=== PATIENT | female | born 1995 | race Caucasian/White ===

== ENCOUNTER 2016-08-14 15:19 | Emergency (ER) | payer OTHER ==
[2016-08-14 15:41] VITALS: TEMP 97.9
[2016-08-14] MEDS ORDERED: SODIUM CHLORIDE 0.9% 2,000 ML IV STA (16:26)
[2016-08-14] MEDS ORDERED: ACETAMINOPHEN IV (For NPO) 1,000 MG in EMPTY BAG 1 BAG IVPB STA (16:26)
--- NOTE | 2016-08-14 16:28 | ED ---
Nausea/Vomiting/Diarrhea HPI - General Chief complaint: Nausea/Vomiting/Diarrhea Stated complaint: NVD/Abdominal pain/16 wks preg Time Seen by Provider: 08/14/16 16:19 Source: patient, RN notes reviewed Mode of arrival: ambulatory Limitations: no limitations - History of Present Illness Initial comments: 21-year-old female who is a presents to the emergency Department chief complaint of nausea vomiting and diarrhea in . Patient states this started about 2 days ago. Patient states her whole body just feels keeping crampy. Patient states that she thrown up multiple times has been no blood in the vomit or diarrhea. Patient states she's been able to drink some water but she does have lots of vomiting such as now, she is actually down. Patient states she's felt hot and cold but never has had a fever that she is aware of. Patient states she was concerned due to the fact that she discontinued any nausea vomiting diarrhea so she thought that she should be evaluated. Patient states that she is not currently having any other symptoms at this time. Patient denies any recent fever, chills, shortness of breath, chest pain, back pain, numbness or tingling, dysuria or hematuria, constipation, headaches or visual changes, or any other current symptoms. - Related Data Home Medications Medication Instructions Recorded Confirmed Pnv with Ca,No.72/Iron/FA 1 tab PO DAILY 08/14/16 08/14/16 [ Plus Tablet] Allergies Allergy/AdvReac Type Severity Reaction Status Date / Time amoxicillin Allergy Rash/Hives Verified 08/14/16 17:25 cephalexin monohydrate Allergy Rash/Hives Verified 08/14/16 17:25 [From Keflex] clarithromycin [From Biaxin] Allergy Rash/Hives Verified 08/14/16 17:25 oxycodone [From Percocet] Allergy Unknown Verified 08/14/16 17:25 Penicillins Allergy Rash/Hives Verified 08/14/16 17:25 morphine AdvReac Nausea & Verified 08/14/16 17:25 Vomiting Review of Systems ROS Statement: Those systems with pertinent positive or pertinent negative responses have been documented in the HPI. ROS Other: All systems not noted in ROS Statement are negative. Past Medical History Past Medical History: Seizure Disorder History of Any Multi-Drug Resistant Organisms: MRSA Date of last positivie culture/infection: 2011 MDRO Source:: mrsa Past Surgical History: No Surgical Hx Reported Past Anesthesia/Blood Transfusion Reactions: No Reported Reaction Past Psychological History: Anxiety, Depression Smoking Status: Never smoker Past Alcohol Use History: None Reported Past Drug Use History: None Reported General Exam - General Exam Comments Initial Comments: General: The patient is awake and alert, in no distress, and does not appear acutely ill. Eye: Pupils are equal, round and reactive to light, extra-ocular movements are intact; there is normal conjunctiva bilaterally. No signs of icterus. Ears, nose, mouth and throat: There are moist mucous membranes. Neck: The neck is supple, there is no tenderness. Cardiovascular: There is a regular rate and rhythm. No murmur, rub or gallop is appreciated. Respiratory: Lungs are clear to auscultation, respirations are non-labored, breath sounds are equal. No wheezes, stridor, rales, or rhonchi. Gastrointestinal: Soft, non-distended, non-tender abdomen without masses or organomegaly noted. There is no rebound or guarding present. No CVA tenderness. Bowel sounds are unremarkable. Back: There is no tenderness to palpation in the midline. There is no obvious deformity. No rashes noted. Musculoskeletal: Normal ROM, no tenderness, There is no pedal edema. There is no calf tenderness or swelling. Sensation intact. Pulses equal bilaterally 2+. Neurological: CN II-XII intact, There are no obvious motor or sensory deficits. Coordination appears grossly intact. Speech is normal. Skin: Skin is warm and dry and no rashes or lesions are noted. Psychiatric: Cooperative, appropriate mood & affect, normal judgment. Limitations: no limitations Course Vital Signs 08/14/16 15:38 Temperature 97.9 F Pulse Rate 111 H Respiratory 20 Rate Blood Pressure 102/66 O2 Sat by Pulse 98 Oximetry Medical Decision Making - Medical Decision Making 21-year-old female who is currently 16 weeks presents emergency nausea vomiting diarrhea. At this time the patient's laboratory is reviewed. Patient was tachycardic patient was dehydrated as well. She did receive 2 L of fluid. Patient this time is feeling better. Patient's heart tones more elevated in the room however the patient states she has had this throughout her . 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 We discussed return parameters on the patient's questions. She states she understood. She is comfortable going home. Patient will be discharged. - Lab Data Result diagrams: 08/14/16 16:35 08/14/16 16:35 Lab Results 08/14/16 08/14/16 08/14/16 Range/Units 16:35 16:35 16:35 WBC 10.7 H (3.8-10.6) k/uL RBC 4.23 (3.80-5.40) m/uL Hgb 12.8 (11.4-16.0) gm/dL Hct 38.2 (34.0-46.0) % MCV 90.3 (80.0-100.0) fL MCH 30.4 (25.0-35.0) pg MCHC 33.6 (31.0-37.0) g/dL RDW 13.1 (11.5-15.5) % Plt Count 273 (150-450) k/uL Neutrophils % 88 % Lymphocytes % 7 % Monocytes % 3 % Eosinophils % 2 % Basophils % 0 % Neutrophils # 9.3 H (1.3-7.7) k/uL Lymphocytes # 0.8 L (1.0-4.8) k/uL Monocytes # 0.3 (0-1.0) k/uL Eosinophils # 0.2 (0-0.7) k/uL Basophils # 0.0 (0-0.2) k/uL Sodium 138 (137-145) mmol/L Potassium 4.1 (3.5-5.1) mmol/L Chloride 106 (98-107) mmol/L Carbon Dioxide 19 L (22-30) mmol/L Anion Gap 13 mmol/L BUN 5 L (7-17) mg/dL Creatinine 0.46 L (0.52-1.04) mg/dL Est GFR (MDRD) Af Amer >60 (>60 ml/min/1.73 sqM) Est GFR (MDRD) Non-Af >60 (>60 ml/min/1.73 sqM) Glucose 67 L (74-99) mg/dL Calcium 9.6 (8.4-10.2) mg/dL Total Bilirubin 0.9 (0.2-1.3) mg/dL AST 22 (14-36) U/L ALT 30 (9-52) U/L Alkaline Phosphatase 82 (38-126) U/L Total Protein 7.1 (6.3-8.2) g/dL Albumin 3.9 (3.5-5.0) g/dL Amylase 68 (30-110) U/L Lipase 61 (23-300) U/L Urine Color Urine Appearance (Clear) Urine pH (5.0-8.0) Ur Specific [place] (1.001-1.035) Urine Protein (Negative) Urine Glucose (UA) (Negative) Urine Ketones (Negative) Urine Blood (Negative) Urine Nitrate (Negative) Urine Bilirubin (Negative) Urine Urobilinogen (<2.0) mg/dL Ur Leukocyte Esterase (Negative) Urine RBC (0-5) /hpf Urine WBC (0-5) /hpf Ur Squamous Epith Cells (0-4) /hpf Urine Mucus (None) /hpf Influenza Type A RNA Not Detected (Not Detectd) Influenza Type B (PCR) Not Detected (Not Detectd) 08/14/16 Range/Units 16:35 WBC (3.8-10.6) k/uL RBC (3.80-5.40) m/uL Hgb (11.4-16.0) gm/dL Hct (34.0-46.0) % MCV (80.0-100.0) fL MCH (25.0-35.0) pg MCHC (31.0-37.0) g/dL RDW (11.5-15.5) % Plt Count (150-450) k/uL Neutrophils % % Lymphocytes % % Monocytes % % Eosinophils % % Basophils % % Neutrophils # (1.3-7.7) k/uL Lymphocytes # (1.0-4.8) k/uL Monocytes # (0-1.0) k/uL Eosinophils # (0-0.7) k/uL Basophils # (0-0.2) k/uL Sodium (137-145) mmol/L Potassium (3.5-5.1) mmol/L Chloride (98-107) mmol/L Carbon Dioxide (22-30) mmol/L Anion Gap mmol/L BUN (7-17) mg/dL Creatinine (0.52-1.04) mg/dL Est GFR (MDRD) Af Amer (>60 ml/min/1.73 sqM) Est GFR (MDRD) Non-Af (>60 ml/min/1.73 sqM) Glucose (74-99) mg/dL Calcium (8.4-10.2) mg/dL Total Bilirubin (0.2-1.3) mg/dL AST (14-36) U/L ALT (9-52) U/L Alkaline Phosphatase (38-126) U/L Total Protein (6.3-8.2) g/dL Albumin (3.5-5.0) g/dL Amylase (30-110) U/L Lipase (23-300) U/L Urine Color Yellow Urine Appearance Clear (Clear) Urine pH 5.5 (5.0-8.0) Ur Specific [place] 1.016 (1.001-1.035) Urine Protein Negative (Negative) Urine Glucose (UA) Negative (Negative) Urine Ketones 4+ H (Negative) Urine Blood Negative (Negative) Urine Nitrate Negative (Negative) Urine Bilirubin Negative (Negative) Urine Urobilinogen <2.0 (<2.0) mg/dL Ur Leukocyte Esterase Moderate H (Negative) Urine RBC 2 (0-5) /hpf Urine WBC 3 (0-5) /hpf Ur Squamous Epith Cells 5 H (0-4) /hpf Urine Mucus Rare H (None) /hpf Influenza Type A RNA (Not Detectd) Influenza Type B (PCR) (Not Detectd) Disposition Clinical Impression: Nausea and vomiting, Diarrhea Disposition: HOME SELF-CARE Condition: Stable Instructions: Acute Nausea and Vomiting (ED) Additional Instructions: Please use medication as discussed. Please follow up with family doctor if symptoms have not improved over the next two days. Please return to the emergency room if your symptoms increase or worsen or for any other concerns. Referrals: Lance Cruz DO [Primary Care Provider] - 1-2 days Time of Disposition: 18:49
[2016-08-14 17:13] LABS: Basophils % (A) 0 %; CH 30.8; CHCM 34.3; Eosinophils # (A) 0.2 k/uL (0-0.7); Eosinophils % (A) 2 %; HCT 38.2 % (34.0-46.0); HDW 2.66; HGB 12.8 gm/dL (11.4-16.0); Luc # (Auto) 0.04; Luc % (Auto) 0; Lymphocytes # (A) 0.8 k/uL (1.0-4.8); Lymphocytes % (A) 7 %; MCH 30.4 pg (25.0-35.0); MCHC 33.6 g/dL (31.0-37.0); MCV 90.3 fL (80.0-100.0); Mean Platelet Volume 7.8; Monocytes # (A) 0.3 k/uL (0-1.0); Monocytes % (A) 3 %; Neutrophils # (A) 9.3 k/uL (1.3-7.7); Neutrophils % (A) 88 %; RBC 4.23 m/uL (3.80-5.40); RDW 13.1 % (11.5-15.5); WBC 10.7 k/uL (3.8-10.6); WBC (Perox) 10.62
[2016-08-14 17:22] LABS: Appearance,Urine Clear (Clear); Bilirubin,Urine Negative (Negative); Glucose,Urine (UA) Negative (Negative); Ketones,Urine 4+ (Negative); Leukocyte Esterase,Urine Moderate (Negative); Mucus,Urine Rare /hpf; Nitrite,Urine Negative (Negative); PH, Urine 5.5 (5.0-8.0); Particle Count 3845; Protein,Urine Negative (Negative); RBC,Urine 2 /hpf (0-5); Specific Gravity,Urine 1.016 (1.001-1.035); Squamous Epithelial Cell,Urine 5 /hpf (0-4); UA Billing (MACRO vs. MICRO) MICRO; Urobilinogen,Urine <2.0 mg/dL (<2.0); WBC,Urine 3 /hpf (0-5)
[2016-08-14 17:28] LABS: ALT 30 U/L (9-52); AST 22 U/L (14-36); Alkaline Phosphatase 82 U/L (38-126); Amylase 68 U/L (30-110); Anion Gap 13 mmol/L; Blood Urea Nitrogen 5 mg/dL (7-17); Calcium 9.6 mg/dL (8.4-10.2); Carbon Dioxide 19 mmol/L (22-30); Chloride 106 mmol/L (98-107); Glucose 67 mg/dL (74-99); Non-African American GFR(MDRD) >60 (>60 ml/min/1.73 sqM); Potassium 4.1 mmol/L (3.5-5.1); Sodium 138 mmol/L (137-145); Total Bilirubin 0.9 mg/dL (0.2-1.3); Total Protein 7.1 g/dL (6.3-8.2)
[2016-08-14 19:00] VITALS: BP 102/68; PULSE 94; RESP 18
== END 2016-08-14 18:59 | disposition home or self-care (01) ==
LOC: EC 15:19
DX: O26.892 Other specified pregnancy related conditions, second trimester (principal); R11.2 Nausea with vomiting, unspecified; R19.7 Diarrhea, unspecified; E86.0 Dehydration; R00.0 Tachycardia, unspecified; Z3A.16 16 weeks gestation of pregnancy; Z88.0 Allergy status to penicillin; Z88.1 Allergy status to other antibiotic agents; Z88.5 Allergy status to narcotic agent
CPT/HCPCS: 99284; 96374; 96361 ×2; 36415; 80053; 82150; 83690; 85025; 81001; 87040; 87086; 87502; J0131

== ENCOUNTER 2016-09-17 14:48 | Emergency (ER) | payer OTHER ==
[2016-09-17 15:06] VITALS: BP 117/70; PULSE 106; RESP 20; TEMP 98.4
--- NOTE | 2016-09-17 15:39 | ED ---
General Adult HPI - General Chief complaint: ENT Stated complaint: Sore Throat Time Seen by Provider: 09/17/16 15:27 Source: patient, RN notes reviewed Mode of arrival: ambulatory Limitations: no limitations - History of Present Illness Initial comments: this is a 21-year-old female who presents with a sore throat and diagnosed conjunctivitis that started yesterday. Patient states she was at her primary care physician who started her on azithromycin and antibiotic eyedrops. Patient states she has been taking 1000 mg of Tylenol and just started her azithromycin today. Patient states her sore throat has prevented her from eating and she did not get a good night's sleep. Patient states she has been feeling hot and cold but has had no documented fever. Patient is currently ~23 weeks . Patient states there is a throat swab pending for strep that was done by her primary care physician. Patient denies any recent shortness breath, chest pain, abdominal pain, nausea/vomiting/diarrhea, vaginal discharge , vaginal bleeding, back pain, numbness, tingling, hematuria, headache, or visual changes, or any other complaints. - Related Data Home Medications Medication Instructions Recorded Confirmed Pnv with Ca,No.72/Iron/FA 1 tab PO DAILY 08/14/16 09/17/16 [ Plus Tablet] Previous Rx's Medication Instructions Recorded Lidocaine Viscous [Xylocaine 1 ml MUCOUS MEM Q3H 7 Days 09/17/16 Viscous 2%] Allergies Allergy/AdvReac Type Severity Reaction Status Date / Time amoxicillin Allergy Rash/Hives Verified 09/17/16 15:06 cephalexin monohydrate Allergy Rash/Hives Verified 09/17/16 15:06 [From Keflex] clarithromycin [From Biaxin] Allergy Rash/Hives Verified 09/17/16 15:06 oxycodone [From Percocet] Allergy Unknown Verified 09/17/16 15:06 Penicillins Allergy Rash/Hives Verified 09/17/16 15:06 morphine AdvReac Nausea & Verified 09/17/16 15:06 Vomiting Review of Systems ROS Statement: Those systems with pertinent positive or pertinent negative responses have been documented in the HPI. ROS Other: All systems not noted in ROS Statement are negative. Past Medical History Past Medical History: Seizure Disorder History of Any Multi-Drug Resistant Organisms: MRSA Date of last positivie culture/infection: 2011 MDRO Source:: mrsa Past Surgical History: No Surgical Hx Reported Past Anesthesia/Blood Transfusion Reactions: No Reported Reaction Past Psychological History: Anxiety, Depression Smoking Status: Never smoker Past Alcohol Use History: None Reported Past Drug Use History: None Reported General Exam - General Exam Comments Initial Comments: General: The patient is awake and alert, in no distress, and does not appear acutely ill. Eye: Pupils are equal, round and reactive to light, extra-ocular movements are intact. No nystagmus. There is normal conjunctiva bilaterally. No signs of icterus. Ears: TMs pink and pearly with intact cone of light bilaterally. Normal external ear canals Nose: Nasal turbinates pink and moist Mouth and throat: Mild erythema of the posterior pharynx with normal sized tonsils, no exudates. There are moist mucous membranes and no oral lesions. Neck: The neck is supple, there is no tenderness or JVD. Cardiovascular: There is a regular rate and rhythm. No murmur, rub or gallop is appreciated. Respiratory: Lungs are clear to auscultation, respirations are non-labored, breath sounds are equal. No wheezes, stridor, rales, or rhonchi. Gastrointestinal: Soft, non-distended, non-tender abdomen without masses or organomegaly noted. There is no rebound or guarding present. Bowel sounds are unremarkable. Musculoskeletal: Normal ROM, no tenderness. Strength 5/5. Sensation intact. Radial pulses equal bilaterally 2+. Neurological: A&O x 3. CN II-XII intact, There are no obvious motor or sensory deficits. Coordination appears grossly intact. Speech is normal. Skin: Skin is warm and dry and no rashes or lesions are noted. Psychiatric: Cooperative, appropriate mood & affect, normal judgment. Limitations: no limitations Course Vital Signs 09/17/16 15:02 Temperature 98.4 F Pulse Rate 106 H Respiratory 20 Rate Blood Pressure 117/70 O2 Sat by Pulse 97 Oximetry Medical Decision Making - Medical Decision Making This is a female presents with sore throat and conjunctivitis she has been on azithromycin for 1 dose. On physical exam patient is afebrile in the EC. There is mild erythema to the posterior pharynx but no tonsillar enlargement or exudates. I discussed with patient that she'll have to continue Tylenol. Discussed that patient should continue her antibiotics as prescribed. Discussed that the patient should finish the entire course of antibiotics. Patient will be given a prescription for viscous lidocaine to swish/gargle and spit out to help with the sore throat pain. Discussed return parameters. Discussed that patient should follow up with PCP in one to 2 days or return to the EC for any worsening symptoms or for any further concerns. Patient was receptive to this plan and patient will be discharged home. Disposition Clinical Impression: Sore throat Disposition: HOME SELF-CARE Condition: Good Instructions: Pharyngitis (ED) Additional Instructions: Please use viscous lidocaine as prescribed. Please finish entire course of your antibiotic. Please use Tylenol as needed for pain. Please use medication as discussed. Please follow-up with family doctor in the next 2 days of symptoms have not improved. Please return to emergency room if the symptoms increase or worsen or for any other concerns. Prescriptions: Lidocaine Viscous [Xylocaine Viscous 2%] 1 ml MUCOUS MEM Q3H 7 Days Time of Disposition: 15:52
== END 2016-09-17 15:56 | disposition home or self-care (01) ==
LOC: EC 14:48
DX: O99.512 Diseases of the respiratory system complicating pregnancy, second trimester (principal); J02.9 Acute pharyngitis, unspecified; Z3A.23 23 weeks gestation of pregnancy; Z86.69 Personal history of other diseases of the nervous system and sense organs; Z79.899 Other long term (current) drug therapy; Z88.0 Allergy status to penicillin; Z88.1 Allergy status to other antibiotic agents; Z88.5 Allergy status to narcotic agent; Z88.6 Allergy status to analgesic agent
CPT/HCPCS: 99283

== ENCOUNTER → 2017-06-21 | Outpatient (CLI) | payer OTHER ==
[2017-06-21 11:13] LABS: Basophils # (A) 0.1 k/uL (0-0.2); Basophils % (A) 1 %; CH 25.5; CHCM 30.6; Eosinophils # (A) 0.2 k/uL (0-0.7); Eosinophils % (A) 2 %; HCT 41.2 % (34.0-46.0); HDW 2.26; HGB 12.8 gm/dL (11.4-16.0); Hypochromasia Slight; Luc # (Auto) 0.11; Luc % (Auto) 1; Lymphocytes # (A) 2.9 k/uL (1.0-4.8); Lymphocytes % (A) 32 %; MCH 25.9 pg (25.0-35.0); MCV 83.7 fL (80.0-100.0); Mean Platelet Volume 7.4; Monocytes # (A) 0.6 k/uL (0-1.0); Monocytes % (A) 7 %; Neutrophils % (A) 57 %; RBC 4.93 m/uL (3.80-5.40); WBC 8.8 k/uL (3.8-10.6); WBC (Perox) 8.34
== END | disposition home or self-care (01) ==
LOC: LABWHC1 10:22
PROVIDERS: ATTEND Family Medicine
DX: M19.90 Unspecified osteoarthritis, unspecified site (principal)
CPT/HCPCS: 36415; 85025

== ENCOUNTER 2017-06-22 07:39 | Day surgery (SDC) | payer OTHER ==
[2017-06-18 13:29] VITALS: BMI 26.6
--- NOTE | 2017-06-21 16:54 | P.HPOB ---
History of Present Illness H&P Date: 06/21/17 Chief Complaint: family planning 22 year old presents for laparoscopic tubal ligation. Review of Systems All systems: negative Constitutional: Denies chills, Denies fever Eyes: denies blurred vision, denies pain Ears, nose, mouth and throat: Denies headache, Denies sore throat Cardiovascular: Denies chest pain, Denies shortness of breath Respiratory: Denies cough Gastrointestinal: Denies abdominal pain, Denies diarrhea, Denies nausea, Denies vomiting Genitourinary: Denies dysuria, Denies hematuria Musculoskeletal: Denies myalgias Integumentary: Denies pruritus, Denies rash Neurological: Denies numbness, Denies weakness Psychiatric: Denies anxiety, Denies depression Endocrine: Denies fatigue, Denies weight change Past Medical History Past Medical History: Asthma, GERD/Reflux, Osteoarthritis (OA), Seizure Disorder Additional Past Medical History / Comment(s): last seizure 06/13/16 does not take medication for seizures, back pain History of Any Multi-Drug Resistant Organisms: MRSA Date of last positivie culture/infection: 2011 MDRO Source:: mrsa Past Surgical History: No Surgical Hx Reported Past Anesthesia/Blood Transfusion Reactions: Motion Sickness Additional Past Anesthesia/Blood Transfusion Reaction / Comment(s): pt states has never had anesthesia Smoking Status: Never smoker - Past Family History Mother Family Medical History: No Reported History Medications and Allergies Home Medications Medication Instructions Recorded Confirmed Type Albuterol Inhaler [Ventolin Hfa 1 - 2 puff INHALATION Q6HR PRN 06/18/17 History Inhaler] HYDROcodone/APAP 10-325MG [[place] 1 tab PO BID 06/18/17 06/18/17 History 10-325] Ibuprofen [Motrin] 800 mg PO DAILY PRN 06/18/17 06/18/17 History LORazepam [Ativan] 2 mg PO DAILY PRN 06/18/17 06/18/17 History Mometasone/Formoterol [Dulera 100 2 puff INHALATION DAILY PRN 06/18/17 06/18/17 History Mcg/5 Mcg Inhaler] Allergies Allergy/AdvReac Type Severity Reaction Status Date / Time amoxicillin Allergy Rash/Hives Verified 06/18/17 13:13 cephalexin monohydrate Allergy Rash/Hives Verified 06/18/17 13:13 [From Keflex] clarithromycin [From Biaxin] Allergy Rash/Hives Verified 06/18/17 13:13 nickel Allergy Unknown Verified 06/18/17 13:32 oxycodone [From Percocet] Allergy Unknown Verified 06/18/17 13:13 Penicillins Allergy Rash/Hives Verified 06/18/17 13:13 morphine AdvReac Nausea & Verified 06/18/17 13:13 Vomiting Exam Osteopathic Statement: *. No significant issues noted on an osteopathic structural exam other than those noted in the History and Physical/Consult. HEart: RRR Lungs: CTAB Abdomen: soft, nontender Extremeties: neg marquez's Assessment and Plan (1) Family planning Status: Acute Code(s): Z30.09 - ENCOUNTER FOR OTH GENERAL CNSL AND ADVICE ON CONTRACEPTION SNOMED Code(s): 66075130 Plan: laparoscopic tubal ligation
[~2017-06-22 07:39] MED LIST: LACTATED RINGERS 1,000 ML IV ONE; MORPHINE SULFATE 10 MG/ML SYRINGE IV PRN; Pre Op ABX Message 1 EACH MISC MISCELLANE ONE
[2017-06-22 07:46] VITALS: TEMP 98
[2017-06-22] MEDS ORDERED: SCOPOLAMINE 1.5MG/72HR PATCH TRANSDERM ONE (07:52)
[2017-06-22] MEDS: ONDANSETRON 4 MG/2 ML VIAL IVP PRN ×2 (07:55→09:46)
[2017-06-22] MEDS ORDERED: LACTATED RINGERS 1,000 ML IV ONE (07:55)
[2017-06-22] MEDS ORDERED: DEXAMETHASONE SOD PHOS (MDV) 100 MG/10 ML VIAL IVP ONE (07:55)
[2017-06-22] MEDS ORDERED: LIDOCAINE 1% INJ 10MG/ML (20 ML MDV) ONE (08:52)
[2017-06-22] MEDS ORDERED: PROPOFOL 10 MG/ML 20 ML VIAL IV ONE (08:52)
[2017-06-22] MEDS ORDERED: fentaNYL (PF) 50 MCG/ML 2 ML AMP ONE (08:52)
[2017-06-22] MEDS ORDERED: MIDAZOLAM 2 MG/2 ML VIAL ONE (08:52)
[2017-06-22] MEDS ORDERED: SUCCINYLCHOLINE CHLORIDE VIAL 200 MG/10 ML VIAL IV ONE (08:52)
[2017-06-22] MEDS ORDERED: KETOROLAC 30 MG/ML 1 ML VIAL ONE (08:52)
[2017-06-22] MEDS ORDERED: BUPIVACAINE (PF) 0.25% 30 ML VIAL SQ ONE ×2 (09:12)
--- NOTE | 2017-06-22 09:34 | P.OP ---
Date of Procedure: 06/22/17 Preoperative Diagnosis: 1. FAmily Planning Postoperative Diagnosis: 1. FAmily Planning Procedure(s) Performed: Laparoscopic tubal ligation Anesthesia: CHANTAL Surgeon: Ese Richardson Estimated Blood Loss (ml): 5 IV fluids (ml): 500 Urine output (ml): 10 Pathology: none sent Condition: stable Disposition: PACU Operative Findings: normal uterus tubes and ovaries Description of Procedure: Patient was taken to the operating room where general anesthesia was obtained without difficulty. She was prepped and draped in normal sterile fashion in the dorsal lithotomy position, legs placed in the Duong stirrups. Bladder drained of all urine. [place] speculum placed in the vagina and the anterior lip the cervix was grasped with single-tooth tenaculum. The uterus is sounded to 9 cm and the kroner manipulator was placed. Attention was then turned to the abdomen and gloves were changed. A 10 mm infraumbilical incision was made the scalpel and 10 mm optical trocar was placed under direct visualization. A 5 mm suprapubic Incision was made and a 5 mm optical trocar was placed under direct visualization. Survey of the pelvis revealed normal uterus tubes and ovaries. The left fallopian tube was grasped with a Kleppinger and fulgurated 2 -3 cm on this side in the ampullar portion. The right fallopian tube was grasped with a Kleppinger and fulgurated 2-3 cm in the ampullar portion. All instruments were then removed from the abdomen and vagina. The 10 mm infraumbilical incision was closed with 0 Vicryl and the fascial layer and then 4-0 Vicryl in a subcuticular fashion. The 5 mm incision was closed with 4-0 Vicryl in a subcuticular fashion. Patient tolerated procedure well, sponge and instrument counts correct 2 and she was taken to recovery room in stable condition.
[2017-06-22 09:48] VITALS: RESP 16
[2017-06-22] MEDS: HYDROmorphone 1 MG/ML 1 ML SYRINGE IVP ONE ×2 (09:51→10:02)
[2017-06-22] MEDS ORDERED: PROMETHAZINE INJ 25 MG/ML 1 ML VIAL IVPB ONE (12:14)
[2017-06-22 12:40] VITALS: BP 93/54; PULSE 62
== END 2017-06-22 14:13 | disposition home or self-care (01) ==
LOC: OR 07:39
PROVIDERS: ATTEND Obstetrics & Gynecology
DX: Z30.2 Encounter for sterilization (principal); J45.909 Unspecified asthma, uncomplicated; K21.9 Gastro-esophageal reflux disease without esophagitis; M19.90 Unspecified osteoarthritis, unspecified site; M54.9 Dorsalgia, unspecified; G40.909 Epilepsy, unspecified, not intractable, without status epilepticus; F41.9 Anxiety disorder, unspecified; Z86.14 Personal history of Methicillin resistant Staphylococcus aureus infection; Z79.891 Long term (current) use of opiate analgesic; Z88.1 Allergy status to other antibiotic agents; Z88.5 Allergy status to narcotic agent; Z88.0 Allergy status to penicillin; Z91.048 Other nonmedicinal substance allergy status
CPT/HCPCS: 81025; 58670; J2250; J0330; J2550; J2405; J2001; J3010; J1885; J1170; J1100; J2704

== ENCOUNTER 2018-03-06 14:35 | Emergency (ER) | payer OTHER ==
[2018-03-06 14:57] VITALS: RESP 18
[2018-03-06] MEDS ORDERED: SODIUM CHLORIDE 0.9% 1,000 ML IV STA (15:21)
[2018-03-06] MEDS ORDERED: DICYCLOMINE 10 MG/ML 2 ML AMP IM STA (15:21)
--- NOTE | 2018-03-06 15:26 | ED ---
General Adult HPI - General Source: patient Mode of arrival: ambulatory Limitations: no limitations <Lory Cuevas - Last Filed: 03/06/18 16:08> <Pankaj Lucas - Last Filed: 03/06/18 19:14> - General Chief complaint: Back Pain/Injury Stated complaint: NVD/chest pain Time Seen by Provider: 03/06/18 15:15 - History of Present Illness Initial comments: 22-year-old female patient presents to emergency department today for complaints of chest pain, shortness of breath, vomiting, and diarrhea. Patient states that she woke this morning with symptoms of chest pain and shortness of breath. Patient states that shortly after she developed vomiting and diarrhea. States that her boyfriend is also sick with diarrhea and vomiting. States that she has felt feverish and chilled. States that she has had generalized abdominal cramping with this. States that she is also has an increase in her usual low back pain. Patient states she has had a tubal ligation. She denies any use of oral contraceptives, history of blood clots, recent travel, or sick contacts. Denies any ingestion of questionable foods. She denies any hematuria , dysuria, urinary urgency, urinary frequency. Patient denies any recent rash, numbness, tingling, dizziness, weakness, headache, visual changes, or any other complaints. (Lory Cuevas) - Related Data Home Medications Medication Instructions Recorded Confirmed Albuterol Inhaler [Ventolin Hfa 1 - 2 puff INHALATION RT-QID PRN 06/18/17 Inhaler] HYDROcodone/APAP 10-325MG [[place] 1 tab PO BID PRN 06/18/17 07/28/17 10-325] Mometasone/Formoterol [Dulera 100 2 puff INHALATION RT-BID PRN 06/18/17 07/28/17 Mcg/5 Mcg Inhaler] Timolol 0.5% Ophth Soln [Timoptic 1 drop LEFT EYE DAILY PRN 07/28/17 07/28/17 0.5% Ophth Soln] Previous Rx's Medication Instructions Recorded Ibuprofen [Motrin] 600 mg PO Q6HR PRN #20 tab 03/06/18 Ondansetron Odt [Zofran Odt] 4 mg PO Q8HR PRN #10 tab 03/06/18 Allergies Allergy/AdvReac Type Severity Reaction Status Date / Time amoxicillin Allergy Rash/Hives Verified 03/06/18 14:55 cephalexin monohydrate Allergy Rash/Hives Verified 03/06/18 14:55 [From Keflex] clarithromycin [From Biaxin] Allergy Rash/Hives Verified 03/06/18 14:55 nickel Allergy Unknown Verified 03/06/18 14:55 oxycodone [From Percocet] Allergy Unknown Verified 03/06/18 14:55 Penicillins Allergy Rash/Hives Verified 03/06/18 14:55 morphine AdvReac Nausea & Verified 03/06/18 14:55 Vomiting Review of Systems ROS Other: All systems not noted in ROS Statement are negative. <Lory Cuevas - Last Filed: 03/06/18 16:08> ROS Other: All systems not noted in ROS Statement are negative. <Pankaj Lucas - Last Filed: 03/06/18 19:14> ROS Statement: Those systems with pertinent positive or pertinent negative responses have been documented in the HPI. Past Medical History Past Medical History: Asthma, GERD/Reflux, Osteoarthritis (OA), Seizure Disorder Additional Past Medical History / Comment(s): last seizure 06/13/16 does not take medication for seizures, back pain History of Any Multi-Drug Resistant Organisms: MRSA Date of last positivie culture/infection: 2011 MDRO Source:: mrsa Past Surgical History: Tubal Ligation Past Anesthesia/Blood Transfusion Reactions: Motion Sickness Additional Past Anesthesia/Blood Transfusion Reaction / Comment(s): pt states has never had anesthesia Past Psychological History: Anxiety, Depression, PTSD Smoking Status: Current every day smoker Past Alcohol Use History: None Reported Past Drug Use History: Marijuana - Past Family History Mother Family Medical History: No Reported History <Lory Cuevas - Last Filed: 03/06/18 16:08> General Exam Limitations: no limitations General appearance: alert, in no apparent distress, other (This is a well- developed, well-nourished adult female patient in no acute distress. Vital signs upon presentation are temperature 98.9F, pulse 111, respirations 18, blood pressure 106/72, pulse ox 100% on room air.) Eye exam: Present: normal appearance, PERRL, EOMI. Absent: scleral icterus, conjunctival injection, periorbital swelling ENT exam: Present: normal exam, normal oropharynx Respiratory exam: Present: normal lung sounds bilaterally. Absent: respiratory distress, wheezes, rales, rhonchi, stridor Cardiovascular Exam: Present: regular rate, normal rhythm, normal heart sounds. Absent: systolic murmur, diastolic murmur, rubs, gallop, clicks GI/Abdominal exam: Present: soft, tenderness (Upper abdominal tenderness), normal bowel sounds. Absent: distended, guarding, rebound, rigid Neurological exam: Present: alert, oriented X3, CN II-XII intact Psychiatric exam: Present: normal affect, normal mood Skin exam: Present: warm, dry, intact, normal color. Absent: rash <Lory Cuevas - Last Filed: 03/06/18 16:08> Course <Lory Cuevas - Last Filed: 03/06/18 16:08> <Pankaj Lucas - Last Filed: 03/06/18 19:14> Vital Signs 03/06/18 03/06/18 03/06/18 14:55 16:37 18:04 Temperature 98.9 F 98.0 F Pulse Rate 111 H 92 107 H Respiratory 18 18 18 Rate Blood Pressure 106/72 99/55 110/67 O2 Sat by Pulse 100 98 98 Oximetry - Reevaluation(s) Reevaluation #1: 03/06/18 16:08 Care has been handed over to Dr. Lucas to follow patient until disposition. ( Lory Cuevas) EKG Findings - EKG Comments: EKG Findings:: EKG obtained at 1534 shows normal sinus rhythm with a sinus arrhythmia. Ventricular rate is 93, TX interval 174, QR alevism 78, QT 314 , QTC 390. No evidence of ST elevation or depression. <Lory Cuevas - Last Filed: 03/06/18 16:08> Medical Decision Making <Lory Cuevas - Last Filed: 03/06/18 16:08> - Lab Data Result diagrams: 03/06/18 15:45 03/06/18 15:45 - Radiology Data Radiology results: report reviewed (I did review the imaging and report no acute findings), image reviewed <Pankaj Lucas - Last Filed: 03/06/18 19:14> - Medical Decision Making The patient is feeling much improved this time she'll be discharged the presentation consistent with costochondritis and gastroenteritis she does have reproducible pain over the chest wall. She is showing improved at this time ( Pankaj Lucas) - Lab Data Lab Results 03/06/18 03/06/18 03/06/18 Range/Units 15:45 15:45 15:45 WBC 9.4 (3.8-10.6) k/uL RBC 5.35 (3.80-5.40) m/uL Hgb 13.5 (11.4-16.0) gm/dL Hct 42.7 (34.0-46.0) % MCV 79.8 L (80.0-100.0) fL MCH 25.2 (25.0-35.0) pg MCHC 31.6 (31.0-37.0) g/dL RDW 15.3 (11.5-15.5) % Plt Count 367 (150-450) k/uL Neutrophils % 88 % Lymphocytes % 6 % Monocytes % 3 % Eosinophils % 2 % Basophils % 0 % Neutrophils # 8.3 H (1.3-7.7) k/uL Lymphocytes # 0.6 L (1.0-4.8) k/uL Monocytes # 0.3 (0-1.0) k/uL Eosinophils # 0.2 (0-0.7) k/uL Basophils # 0.0 (0-0.2) k/uL D-Dimer 0.65 H (<0.60) mg/L FEU Sodium 141 (137-145) mmol/L Potassium 4.2 (3.5-5.1) mmol/L Chloride 108 H (98-107) mmol/L Carbon Dioxide 22 (22-30) mmol/L Anion Gap 11 mmol/L BUN 13 (7-17) mg/dL Creatinine 0.60 (0.52-1.04) mg/dL Est GFR (CKD-EPI)AfAm >90 (>60 ml/min/1.73 sqM) Est GFR (CKD-EPI)NonAf >90 (>60 ml/min/1.73 sqM) Glucose 87 (74-99) mg/dL Calcium 9.9 (8.4-10.2) mg/dL Total Bilirubin 0.7 (0.2-1.3) mg/dL AST 19 (14-36) U/L ALT 29 (9-52) U/L Alkaline Phosphatase 85 (38-126) U/L Total Creatine Kinase (30-135) U/L CK-MB (CK-2) (0.0-2.4) ng/mL CK-MB (CK-2) Rel Index Troponin I (0.000-0.034) ng/mL Total Protein 7.4 (6.3-8.2) g/dL Albumin 4.6 (3.5-5.0) g/dL Amylase 62 (30-110) U/L Lipase 114 (23-300) U/L Urine Color Urine Appearance (Clear) Urine pH (5.0-8.0) Ur Specific [place] (1.001-1.035) Urine Protein (Negative) Urine Glucose (UA) (Negative) Urine Ketones (Negative) Urine Blood (Negative) Urine Nitrite (Negative) Urine Bilirubin (Negative) Urine Urobilinogen (<2.0) mg/dL Ur Leukocyte Esterase (Negative) Urine HCG, Qual (Not Detectd) 03/06/18 03/06/18 03/06/18 Range/Units 15:45 15:50 15:50 WBC (3.8-10.6) k/uL RBC (3.80-5.40) m/uL Hgb (11.4-16.0) gm/dL Hct (34.0-46.0) % MCV (80.0-100.0) fL MCH (25.0-35.0) pg MCHC (31.0-37.0) g/dL RDW (11.5-15.5) % Plt Count (150-450) k/uL Neutrophils % % Lymphocytes % % Monocytes % % Eosinophils % % Basophils % % Neutrophils # (1.3-7.7) k/uL Lymphocytes # (1.0-4.8) k/uL Monocytes # (0-1.0) k/uL Eosinophils # (0-0.7) k/uL Basophils # (0-0.2) k/uL D-Dimer (<0.60) mg/L FEU Sodium (137-145) mmol/L Potassium (3.5-5.1) mmol/L Chloride (98-107) mmol/L Carbon Dioxide (22-30) mmol/L Anion Gap mmol/L BUN (7-17) mg/dL Creatinine (0.52-1.04) mg/dL Est GFR (CKD-EPI)AfAm (>60 ml/min/1.73 sqM) Est GFR (CKD-EPI)NonAf (>60 ml/min/1.73 sqM) Glucose (74-99) mg/dL Calcium (8.4-10.2) mg/dL Total Bilirubin (0.2-1.3) mg/dL AST (14-36) U/L ALT (9-52) U/L Alkaline Phosphatase (38-126) U/L Total Creatine Kinase 79 (30-135) U/L CK-MB (CK-2) 0.4 (0.0-2.4) ng/mL CK-MB (CK-2) Rel Index 0.5 Troponin I <0.012 (0.000-0.034) ng/mL Total Protein (6.3-8.2) g/dL Albumin (3.5-5.0) g/dL Amylase (30-110) U/L Lipase (23-300) U/L Urine Color Yellow Urine Appearance Clear (Clear) Urine pH 8.5 H (5.0-8.0) Ur Specific [place] 1.020 (1.001-1.035) Urine Protein Trace H (Negative) Urine Glucose (UA) Negative (Negative) Urine Ketones Trace H (Negative) Urine Blood Negative (Negative) Urine Nitrite Negative (Negative) Urine Bilirubin Negative (Negative) Urine Urobilinogen <2.0 (<2.0) mg/dL Ur Leukocyte Esterase Negative (Negative) Urine HCG, Qual Not Detected (Not Detectd) Disposition <Lory Cuevas - Last Filed: 03/06/18 16:08> Is patient prescribed a controlled substance at d/c from ED?: No <Pankaj Lucas - Last Filed: 03/06/18 19:14> Clinical Impression: Gastroenteritis, Costochondritis, acute Disposition: HOME SELF-CARE Condition: Good Instructions: Acute Nausea and Vomiting (ED), Dehydration (ED), Costochondritis (ED) Prescriptions: Ibuprofen [Motrin] 600 mg PO Q6HR PRN #20 tab PRN Reason: Pain Ondansetron Odt [Zofran Odt] 4 mg PO Q8HR PRN #10 tab PRN Reason: Nausea Referrals: Lance Cruz DO [Primary Care Provider] - 1-2 days
[2018-03-06] MEDS: ONDANSETRON 4 MG/2 ML VIAL IVP STA ×2 (15:54→18:33)
[2018-03-06] MEDS: KETOROLAC 30 MG/ML 1 ML VIAL IVP STA ×2 (15:54→18:11)
[2018-03-06 16:02] LABS: Appearance,Urine Clear (Clear); Bilirubin,Urine Negative (Negative); Blood,Urine Negative (Negative); Color,Urine Yellow; Glucose,Urine (UA) Negative (Negative); Ketones,Urine Trace (Negative); Leukocyte Esterase,Urine Negative (Negative); Nitrite,Urine Negative (Negative); PH, Urine 8.5 (5.0-8.0); Protein,Urine Trace (Negative); Urobilinogen,Urine <2.0 mg/dL (<2.0)
[2018-03-06 16:02] LABS: Basophils % (A) 0 %; Eosinophils # (A) 0.2 k/uL (0-0.7); Eosinophils % (A) 2 %; HCT 42.7 % (34.0-46.0); HGB 13.5 gm/dL (11.4-16.0); Lymphocytes # (A) 0.6 k/uL (1.0-4.8); Lymphocytes % (A) 6 %; MCH 25.2 pg (25.0-35.0); MCHC 31.6 g/dL (31.0-37.0); MCV 79.8 fL (80.0-100.0); Mean Platelet Volume 6.8; Monocytes # (A) 0.3 k/uL (0-1.0); Monocytes % (A) 3 %; Neutrophils # (A) 8.3 k/uL (1.3-7.7); Neutrophils % (A) 88 %; Platelet Count 367 k/uL (150-450); RBC 5.35 m/uL (3.80-5.40); RDW 15.3 % (11.5-15.5); WBC 9.4 k/uL (3.8-10.6)
[2018-03-06 16:12] LABS: ALT 29 U/L (9-52); AST 19 U/L (14-36); Albumin 4.6 g/dL (3.5-5.0); Alkaline Phosphatase 85 U/L (38-126); Amylase 62 U/L (30-110); Anion Gap 11 mmol/L; Blood Urea Nitrogen 13 mg/dL (7-17); Calcium 9.9 mg/dL (8.4-10.2); Carbon Dioxide 22 mmol/L (22-30); Chloride 108 mmol/L (98-107); Glucose 87 mg/dL (74-99); Lipase 114 U/L (23-300); Potassium 4.2 mmol/L (3.5-5.1); Sodium 141 mmol/L (137-145); Total Bilirubin 0.7 mg/dL (0.2-1.3); Total Protein 7.4 g/dL (6.3-8.2)
[2018-03-06 16:20] LABS: Creatine Kinase 79 U/L (30-135)
--- NOTE | 2018-03-06 16:26 | XR ---
EXAMINATION TYPE: XR chest 2V DATE OF EXAM: 03/06/2018 COMPARISON: Chest radiograph 09/02/2012 and 09/06/2012 HISTORY: Abdominal pain and emesis TECHNIQUE: Frontal and lateral views of the chest are obtained. FINDINGS: There is no focal air space opacity, pleural effusion, or pneumothorax seen. The cardiac silhouette size is within normal limits. The osseous structures are intact. IMPRESSION: No acute cardiopulmonary process.
--- NOTE | 2018-03-06 16:28 | XR ---
EXAMINATION TYPE: XR KUB DATE OF EXAM: 03/06/2018 4:19 PM CLINICAL HISTORY: Abdominal pain and emesis TECHNIQUE: Single supine KUB image of the abdomen is obtained. COMPARISON: Abdominal radiograph 09/04/12. FINDINGS: No evidence of pneumoperitoneum. No dilated loops of large or small bowel. No abnormal intra-abdomina l pelvic calcifications. No visceromegaly. Osseous structures are intact. IMPRESSION: No acute abdominal or pelvic process.
[2018-03-06 16:33] LABS: Creatine Kinase MB 0.4 ng/mL (0.0-2.4); Troponin I <0.012 ng/mL (0.000-0.034)
--- NOTE | 2018-03-06 18:31 | CT ---
EXAMINATION TYPE: CT angio chest DATE OF EXAM: 03/06/2018 COMPARISON: NONE HISTORY: Chest and back pain. CT DLP: 220.9 mGycm. Automated Exposure Control for Dose Reduction was Utilized. CONTRAST: CTA scan of the thorax is performed with IV Contrast, patient injected with 72 mL of Isovue 370, pulm onary embolism protocol. MIP Images are created on CT scanner and reviewed. FINDINGS: LUNGS: The lungs are grossly clear, there is no concerning parenchymal mass or nodule identified. T here is no pleural effusion or pneumothorax seen. The tracheobronchial tree is patent. MEDIASTINUM: The ascending and descending thoracic aorta are without evidence of aneurysmal dilatatio n. No evidence of aortic dissection. There are no greater than 1 cm hilar or mediastinal lymph nodes. No cardiomegaly or pericardial effusion is seen. Visualized portions of the celiac trunk and superior mesenteric artery are within normal limits. Uppe r abdominal vasculature OTHER: Limited evaluation of the upper abdomen is unremarkable. Osseous structures are intact. Dextro scoliosis is favored to be positional. IMPRESSION: No acute thoracic process.
[2018-03-06 19:24] VITALS: BP 113/64; PULSE 98; TEMP 98.9
== END 2018-03-06 19:24 | disposition home or self-care (01) ==
LOC: EC 14:35
DX: M94.0 Chondrocostal junction syndrome [Tietze] (principal); K52.9 Noninfective gastroenteritis and colitis, unspecified; J45.909 Unspecified asthma, uncomplicated; M19.90 Unspecified osteoarthritis, unspecified site; F17.200 Nicotine dependence, unspecified, uncomplicated; Z86.14 Personal history of Methicillin resistant Staphylococcus aureus infection; Z98.51 Tubal ligation status; Z88.0 Allergy status to penicillin; Z88.1 Allergy status to other antibiotic agents; Z88.5 Allergy status to narcotic agent; Z91.048 Other nonmedicinal substance allergy status
CPT/HCPCS: 36415; 93005; 85379; 80053; 82150; 82550; 82553; 83690; 84484; 85025; 81003; 81025; 71046; 74018; 71275; 99285; 96374; 96375; 96361; 96372; J0500; J2405; J1885; Q9967

== ENCOUNTER → 2018-03-16 | Outpatient (CLI) | payer OTHER ==
--- NOTE | 2018-03-17 10:14 | USB ---
Reason for exam: clinical finding. History: Family history of breast cancer in aunt. Physical Findings: Nurse Summary: clear/white discharge, pain, itching (nurse kp). US Breast BILAT Right complete breast ultrasound includes all four quadrants, the retroareolar region and axilla. Finding demonstrates a 0.6 x 0.6 x 0.4cm oval, solid, hypoechoic lesion at 8 o'clock retroareolar within duct for which a biopsy is recommended. At the 5 o'clock physician palpated site, no cystic or solid lesion is seen. Left complete breast ultrasound includes all four quadrants, the retroareolar region and axilla. Finding demonstrates no cystic or solid lesion seen. These results were verbally communicated with the patient and result sheet given to the patient on 03/16/18. ASSESSMENT: Suspicious, BI-RAD 4 RECOMMENDATION: Ultrasound core biopsy of the right breast. Called Dr. Cruz with mammographic findings and has scheduled an appointment for the patient for 03/18/18 at 12:[address] Rutledge. Biopsy scheduled for 03/23/18 at 2:20. PRELIMINARY REPORT CALLED AND FAXED TO DR. RUTLEDGE ON 03/17/18.
== END | disposition home or self-care (01) ==
LOC: RADUSWWP 15:04
PROVIDERS: ATTEND Family Medicine
DX: N63.10 Unspecified lump in the right breast, unspecified quadrant (principal)

== ENCOUNTER → 2018-03-18 | Outpatient (CLI) | payer OTHER ==
[2018-03-18 12:43] VITALS: BP 110/74; PULSE 66; RESP 18; TEMP 98.5; BMI 25.4
--- NOTE | 2018-03-18 13:08 | P.GSHP ---
History of Present Illness H&P Date: 03/18/18 The patient is a 23-year-old white female who is approximately one year . She recently noted nodule in the right breast. She states that both breasts are tender. The tenderness is cyclical. It occurs several times per month. Occurs when on her period. She has bilateral nipple discharge which is white in color. She did not breast-feed. The discharge occurs several times a week. She has inverted nipples. The patient had an ultrasound performed on 03-16-18 which revealed a 0.6 cm solid hypoechoic lesion at 8:00 in the retroareolar area for which a biopsy was recommended. The 5:00 site no cystic or solid lesion was noted. The patient has no infection in her breast. She has no history of any trauma in her breast. Patient has decreased her caffeine exposure over the past several weeks, however she did used to drink a [address] Pepper each day. She does not drink coffee or tea. She does not smoke. Her boyfriend is a smoker and they live together. She does like chocolate but eats very little of it. Family history: 1. great aunt paternal: Bilateral mastectomy in her 50s Past surgical history: 1. Tubal ligation Past medical history: 1. Posterior make stress disorder 2. Glaucoma 3. Anxiety 4. Seizures Hormonal history: Menarche: 9 Pregnancies: 2 with 2 live births, the firstborn at 18, breast fed: Negative control pills- since 14 to control periods homones: none Social history: Smoking: Negative Alcohol: Negative Marijuana: Every day TID - Constitutional Constitutional: Reports chills, Denies fever - EENT Eyes: left as per HPI (glaucoma in her left eye) Ears: deny: decreased hearing, tinnitus Ears, nose, mouth and throat: Reports headache, Denies sore throat - Breasts Breasts: bilateral: as per HPI - Cardiovascular Cardiovascular: Denies chest pain, Denies shortness of breath - Respiratory Comment: asthma Respiratory: Denies cough, Denies 7 - Gastrointestinal Gastrointestinal: Denies abdominal pain, Denies diarrhea, Denies nausea, Denies vomiting - Genitourinary (Female) Comment: UTI - Menstruation Comment: regular periods, last three days Menstruation: Reports period heavy - Musculoskeletal Comment: Arthritis lower back Musculoskeletal: Reports myalgias - Integumentary Comment: Contact dermatitis - Neurological Comment: history of siezures - Psychiatric Psychiatric: Reports anxiety, Reports depression - Endocrine Endocrine: Reports weight change, Denies fatigue - Hematologic/Lymphatic Comment: Ibuprofen 800 - Allergic/Immunologic Allergic/Immunologic: Reports seasonal allergies Past Medical History Past Medical History: Asthma, GERD/Reflux, Osteoarthritis (OA), Seizure Disorder Additional Past Medical History / Comment(s): last seizure 06/13/16 does not take medication for seizures, back pain History of Any Multi-Drug Resistant Organisms: MRSA Date of last positivie culture/infection: 2011 MDRO Source:: mrsa Past Surgical History: Tubal Ligation Past Anesthesia/Blood Transfusion Reactions: Motion Sickness Additional Past Anesthesia/Blood Transfusion Reaction / Comment(s): pt states has never had anesthesia Past Psychological History: Anxiety, Depression, PTSD Smoking Status: Never smoker Past Alcohol Use History: None Reported Past Drug Use History: Marijuana - Past Family History Mother Family Medical History: No Reported History Medications and Allergies Home Medications Medication Instructions Recorded Confirmed Type Albuterol Inhaler [Ventolin Hfa 1 - 2 puff INHALATION RT-QID PRN 06/18/17 History Inhaler] Mometasone/Formoterol [Dulera 100 2 puff INHALATION RT-BID PRN 06/18/17 History Mcg/5 Mcg Inhaler] Timolol 0.5% Ophth Soln [Timoptic 1 drop LEFT EYE DAILY PRN 07/28/17 03/17/18 History 0.5% Ophth Soln] Ibuprofen [Motrin] 600 mg PO Q6HR PRN #20 tab 03/06/18 03/17/18 Rx Allergies Allergy/AdvReac Type Severity Reaction Status Date / Time amoxicillin Allergy Rash/Hives Verified 03/17/18 16:16 cephalexin monohydrate Allergy Rash/Hives Verified 03/17/18 16:16 [From Keflex] clarithromycin [From Biaxin] Allergy Rash/Hives Verified 03/17/18 16:16 nickel Allergy Unknown Verified 03/17/18 16:16 oxycodone [From Percocet] Allergy Unknown Verified 03/17/18 16:16 Penicillins Allergy Rash/Hives Verified 03/17/18 16:16 morphine AdvReac Nausea & Verified 03/17/18 16:16 Vomiting Surgical - Exam Vital Signs Temp Pulse Resp BP 98.5 F 66 18 110/74 03/18/18 12:29 03/18/18 12:29 03/18/18 12:29 03/18/18 12:29 - General well developed, well nourished, no distress - Eyes normal ocular movement, no icteric - ENT no hearing loss, no congestion - Neck no masses, trachea midline - Respiratory normal respiratory effort, clear to auscultation - Cardiovascular Rhythm: regular Heart Sounds: normal: S1, S2 - Abdomen Abdomen: soft, non tender, no guarding, no rigid, no rebound - Integumentary no rash, no abnormal pigmentation - Neurologic no disoriented, no combative - Musculoskeletal normal gait, normal posture - Psychiatric oriented to time, oriented to person, oriented to place, speech is normal, memory intact Breast examination: Right breast: Multi-positional exam fibrocystic changes with an area of increased nodularity the 8 o'clock position of the retroareolar region this appears to correspond with a was seen on ultrasound Right axilla: No adenopathy of concern Left breast: Multiple positional exam no dominant masses or nodules of concern Left axilla: No adenopathy of concern Results Impression/plan: 1. Right breast nodularity which does corresponding to that seen on the ultrasound 2. Bilateral nipple milky discharge 3. Bilateral breast discomfort probably fibrocystic in nature 4. Post traumatic stress syndrome 5. Chronic back pain 6. Arthritis 7. History of seizures in the past Plan: 1. Ultrasound-guided core biopsy of the area which is palpable and seen on ultrasound on the right breast 2. Prolactin level to evaluate persistent milky discharge 3. Continued medical management of medical problems 4. Follow-up 1 week after biopsy Cc: Dr. Cruz, Dr. Hurtado
== END | disposition home or self-care (01) ==
LOC: WWCWWP 11:58
PROVIDERS: ATTEND Surgery
DX: Z53.9 Procedure and treatment not carried out, unspecified reason (principal)

== ENCOUNTER → 2018-03-18 | Outpatient (CLI) | payer OTHER ==
[2018-03-18 19:19] LABS: Cyclic Citrullinated Pep IgG NEGATIVE (NEGATIVE); DNA Double-Stranded NEGATIVE (NEGATIVE); RNP <0.2 AI; Scleroderma SC-70 Ab <0.2 AI
== END | disposition home or self-care (01) ==
LOC: LABWHC1 13:19
PROVIDERS: ATTEND Surgery
DX: N64.52 Nipple discharge (principal); M25.50 Pain in unspecified joint
CPT/HCPCS: 36415; 83516; 84146; 86038; 86200; 86225; 86235

== ENCOUNTER → 2018-03-23 | Day surgery (SDC) | payer OTHER ==
[2018-03-23 14:07] VITALS: RESP 16; BMI 25.4
[2018-03-23 15:02] VITALS: BP 107/68; PULSE 83; TEMP 98.5
--- NOTE | 2018-03-23 15:29 | USB ---
EXAMINATION TYPE: US biopsy breast VAD RT, MG diagnostic mammo RT wo CAD DATE OF EXAM: 03/23/2018 CLINICAL HISTORY: R92.8 ABN ultrasound. Palpable abnormality right breast. TECHNIQUE: Ultrasound guided core biopsy of right breast with clip placement and follow-up single view diagnostic right breast mammogram. COMPARISON: Bilateral breast ultrasonography 2018. FINDINGS: The procedure of ultrasound guided core biopsy was explained to the patient. Benefits, alternatives, and risks were discussed. An informed consent was then obtained. The patient was placed in supine positioning for imaging and for the procedure. Preprocedure imaging redemonstrates oval slightly hypoechoic 6 mm lesion 8:00 position zone A right breast. The overlying skin was prepped and draped in usual sterile fashion. Lidocaine buffered with bicarbonate was used as anesthetic into the skin. Lidocaine with epinephrine is used as anesthetic into the deeper tissue up to area of concern in the right breast. Under ultrasound guidance, a 12-gauge vacuum assisted biopsy gun device was used to obtain 3 core samples. Following this, a biopsy clip was left in lesion. The patient tolerated the procedure well without any immediate complication. The patient was kept in the radiology department for short stay after the procedure and then discharged home in stable condition. Postprocedure mammogram confirms successful deployment of clip. IMPRESSION: Successful, uncomplicated ultrasound guided core biopsy of area of concern in the right breast, full pathology results to follow. Low to intermediate index of suspicion noted at time of procedure. Pathology Results: Benign RIGHT BREAST, SITE NOT OTHERWISE SPECIFIED (CORE BIOPSIES): Non-proliferative fibrocystic changes with portion of fibroadenoma. Recommendation Follow up ultrasound of the right breast in 6 months. DARRYL
== END | disposition home or self-care (01) ==
LOC: RADUSWWP 13:23
PROVIDERS: ATTEND Surgery
DX: D24.1 Benign neoplasm of right breast (principal); R92.8 Other abnormal and inconclusive findings on diagnostic imaging of breast
CPT/HCPCS: 88305; 77065; 19083; A4648; J2001

== ENCOUNTER → 2018-04-07 | Outpatient (CLI) | payer OTHER ==
[2018-04-07 10:25] VITALS: BP 107/69; PULSE 67; BMI 25.4
--- NOTE | 2018-04-07 10:39 | P.PN ---
Progress Note - Text Progress Note Date: 04/07/18 The patient is a 23-year-old white female who comes for results status post core biopsy of area of concern in the right breast. Pathology revealed a fibroadenoma. This was consistent with a palpable change in her right breast. The patient states that after the biopsy the area has increased in size. The patient also states that the milky discharge from her breast has stopped. Her prolactin level was 7 which was within normal limits. Physical exam: Lungs: Clear Heart: Regular rate and rhythm Right breast: Approximately 1-1/2 cm area of palpable nodularity in the right breast at approximately the 9:00 area towards the area over minimal ecchymosis noted Impression/plan: 1. Fibroadenoma right breast this may be changing in size as per the patient with the changes may be related to post biopsy hematoma 2. The milky discharge has stopped prolactin levels normal Plan: 1. Surveillance of the area of concern in the right breast patient will follow up in 1 month if this is not decreased in size she wishes this area to be excised. She understands that on the core biopsy this is a fibroadenoma but she believes it is changing it is palpable and is bothersome to her and painful. Cc: Dr. Lance Cruz
== END | disposition home or self-care (01) ==
LOC: WWCWWP 09:44
PROVIDERS: ATTEND Surgery
DX: Z53.9 Procedure and treatment not carried out, unspecified reason (principal)

== ENCOUNTER 2018-06-13 00:02 | Emergency (ER) | payer OTHER ==
[2018-06-13 00:39] LABS: Appearance,Urine Cloudy (Clear); Bacteria,Urine Rare /hpf; Bilirubin,Urine Negative (Negative); Blood,Urine Negative (Negative); Color,Urine Yellow; Glucose,Urine (UA) Negative (Negative); Ketones,Urine Negative (Negative); Leukocyte Esterase,Urine Moderate (Negative); Mucus,Urine Rare /hpf; Nitrite,Urine Negative (Negative); PH, Urine 5.5 (5.0-8.0); Protein,Urine Negative (Negative); RBC,Urine 1 /hpf (0-5); Specific Gravity,Urine 1.015 (1.001-1.035); Squamous Epithelial Cell,Urine 4 /hpf (0-4); Urobilinogen,Urine <2.0 mg/dL (<2.0); WBC,Urine 1 /hpf (0-5)
[2018-06-13 00:47] LABS: Amphetamine Screen,Urine Not Detected (NotDetected); Barbiturate Screen,Urine Not Detected (NotDetected); Benzodiazepines Screen,Urine Not Detected (NotDetected); Cocaine Screen,Urine Not Detected (NotDetected); Methadone Screen, Urine Not Detected (NotDetected); Opiate Screen,Urine Not Detected (NotDetected); Oxycodone Screen, Urine Not Detected (NotDetected); Phencyclidine Screen,Urine Not Detected (NotDetected); Tricyclic Antidepressant,Urine Not Detected (NotDetected); Urn Cannabinoid Scrn Detected (NotDetected)
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
[2018-06-13 03:13] VITALS: BP 130/73; PULSE 80; RESP 17; TEMP 98.8
== END 2018-06-13 03:13 | disposition home or self-care (01) ==
LOC: EC 00:02
DX: F32.9 Major depressive disorder, single episode, unspecified (principal); F41.9 Anxiety disorder, unspecified; R45.851 Suicidal ideations; J45.909 Unspecified asthma, uncomplicated; Z86.14 Personal history of Methicillin resistant Staphylococcus aureus infection; Z88.0 Allergy status to penicillin; Z88.1 Allergy status to other antibiotic agents; Z88.5 Allergy status to narcotic agent; Z88.8 Allergy status to other drugs, medicaments and biological substances
CPT/HCPCS: 80306; 81001; 81025; 82075; 99284

== ENCOUNTER 2018-12-14 16:02 | Emergency (ER) | payer OTHER ==
[2018-12-14 16:23] VITALS: BP 131/90; PULSE 91; RESP 16; TEMP 97.8
--- NOTE | 2018-12-14 17:15 | ED ---
Eye Problem HPI - General Chief complaint: Eye Problems Stated complaint: RT EYE SWELLING Time Seen by Provider: 12/14/18 16:33 Source: patient, RN notes reviewed Mode of arrival: ambulatory Limitations: no limitations - History of Present Illness Initial comments: 23-year-old female presents emergency Department with chief complaint of right eye swelling, discomfort. Patient states started last 48 hours. Patient states that she was seen at [facility] had CT of her LAST night which showed some preseptal swelling and was given Levaquin, steroids. Patient states that she was receiving the increased swelling in the next physician told her that she just had contact dermatitis cut she recently had her hair dyed. Patient states this is different than her normal symptoms. - Related Data Home Medications Medication Instructions Recorded Confirmed Albuterol Inhaler [Ventolin Hfa 1 - 2 puff INHALATION RT-QID PRN 06/18/17 12/14/18 Inhaler] Ibuprofen [Motrin] 800 mg PO Q6H PRN 12/14/18 12/14/18 Levofloxacin [Levaquin] 500 mg PO DAILY 12/14/18 12/14/18 Levothyroxine Sodium [Synthroid] 25 mcg PO DAILY 12/14/18 12/14/18 lamoTRIgine [LaMICtal] 50 mg PO TID 12/14/18 12/14/18 methylPREDNISolone [Medrol] 4 mg PO DAILY 12/14/18 12/14/18 traZODone HCL [Desyrel] 100 mg PO DAILY PRN 12/14/18 12/14/18 Allergies Allergy/AdvReac Type Severity Reaction Status Date / Time nickel Allergy Mild Unknown Verified 12/14/18 16:23 amoxicillin Allergy Rash/Hives Verified 12/14/18 16:23 cephalexin monohydrate Allergy Rash/Hives Verified 12/14/18 16:23 [From Keflex] clarithromycin [From Biaxin] Allergy Rash/Hives Verified 12/14/18 16:23 oxycodone [From Percocet] Allergy Nausea & Verified 12/14/18 16:23 Vomiting Penicillins Allergy Rash/Hives Verified 12/14/18 16:23 morphine AdvReac Nausea & Verified 12/14/18 16:23 Vomiting Review of Systems ROS Statement: Those systems with pertinent positive or pertinent negative responses have been documented in the HPI. ROS Other: All systems not noted in ROS Statement are negative. Past Medical History Past Medical History: Asthma, GERD/Reflux, Osteoarthritis (OA), Seizure Disorder Additional Past Medical History / Comment(s): last seizure 06/13/16 does not take medication for seizures, back pain History of Any Multi-Drug Resistant Organisms: MRSA Date of last positivie culture/infection: 2011 MDRO Source:: mrsa Past Surgical History: Tubal Ligation Past Anesthesia/Blood Transfusion Reactions: Motion Sickness Additional Past Anesthesia/Blood Transfusion Reaction / Comment(s): pt states has never had anesthesia Past Psychological History: Anxiety, Depression, PTSD Smoking Status: Never smoker Past Alcohol Use History: None Reported Past Drug Use History: Cocaine, Marijuana - Past Family History Mother Family Medical History: No Reported History General Exam Limitations: no limitations General appearance: alert, in no apparent distress Head exam: Present: atraumatic, normocephalic, normal inspection Eye exam: Present: PERRL, EOMI, periorbital swelling, periorbital tenderness (Minimal). Absent: normal appearance, scleral icterus, conjunctival injection Pupils: Present: normal accommodation ENT exam: Present: normal exam, normal oropharynx, mucous membranes moist Neck exam: Present: normal inspection. Absent: tenderness, meningismus, lymphadenopathy Respiratory exam: Present: normal lung sounds bilaterally. Absent: respiratory distress, wheezes, rales, rhonchi, stridor Cardiovascular Exam: Present: regular rate, normal rhythm, normal heart sounds. Absent: systolic murmur, diastolic murmur, rubs, gallop, clicks Course Vital Signs 12/14/18 16:20 Temperature 97.8 F Pulse Rate 91 Respiratory 16 Rate Blood Pressure 131/90 O2 Sat by Pulse 100 Oximetry Medical Decision Making - Medical Decision Making 23-year-old female presented for recheck of right eye. Patient does have notable swelling of her right eye. Imaging and labs from [facility] were obtained which showed fluid collection in the preseptal there is no post inflammatory changes. Patient will continue Levaquin and steroids and return for any worsening symptoms. Patient follow-up with her public health social worker Dr. Zamorano. Disposition Clinical Impression: Periorbital cellulitis Disposition: HOME SELF-CARE Condition: Stable Instructions (If sedation given, give patient instructions): Periorbital Cellulitis in Adults (ED) Additional Instructions: Continue medications as directed.Please return to the Emergency Department if symptoms worsen or any other concerns. Is patient prescribed a controlled substance at d/c from ED?: No Referrals: Lance Cruz DO [Primary Care Provider] - 1-2 days Time of Disposition: 17:31
== END 2018-12-14 17:35 | disposition home or self-care (01) ==
LOC: EC 16:02
DX: L03.213 Periorbital cellulitis (principal); J45.909 Unspecified asthma, uncomplicated; K21.9 Gastro-esophageal reflux disease without esophagitis; M19.90 Unspecified osteoarthritis, unspecified site; G40.909 Epilepsy, unspecified, not intractable, without status epilepticus; F32.9 Major depressive disorder, single episode, unspecified; F41.9 Anxiety disorder, unspecified; F43.10 Post-traumatic stress disorder, unspecified; Z86.14 Personal history of Methicillin resistant Staphylococcus aureus infection; Z79.890 Hormone replacement therapy; Z79.899 Other long term (current) drug therapy; Z88.0 Allergy status to penicillin; Z88.1 Allergy status to other antibiotic agents; Z88.5 Allergy status to narcotic agent; Z88.8 Allergy status to other drugs, medicaments and biological substances; Z91.09 Other allergy status, other than to drugs and biological substances
CPT/HCPCS: 99283

== ENCOUNTER 2019-02-24 22:15 | Emergency (ER) | payer OTHER ==
[2019-02-24] MEDS ORDERED: methylPREDNISolone SOD SUCCI 125 MG/2 ML VIAL IM ONE (23:04)
[2019-02-24] MEDS ORDERED: diphenhydrAMINE 50 MG/ML 1 ML VIAL IM STA (23:04)
--- NOTE | 2019-02-24 23:07 | ED ---
Skin/Abscess/FB HPI - General Chief complaint: Skin/Abscess/Foreign Body Stated complaint: Rash Time Seen by Provider: 02/24/19 22:40 Source: patient Mode of arrival: ambulatory Limitations: no limitations - History of Present Illness Initial comments: Patient is a 22-year-old female who presents emergency Department with complaints of a rash that has been on and off for the past 2 months. Patient states the rash initially started after she dyed her hair and started having in an ALLERGIC reaction to hair dye. Patient was on a trial of Cipro for the rash but then had an ALLERGIC reaction to the Cipro with hives all over her body. Patient was then placed on prednisone for 2 weeks rash did start to improve but then when she was done with the prednisone the rash came back. Patient rash is mostly on her posterior neck and on her ears. Patient states she has been taken Benadryl with little improvement. Patient has an appointment with her verena matologist next week. Patient denies fever, chills. - Related Data Home Medications Medication Instructions Recorded Confirmed Albuterol Inhaler [Ventolin Hfa 1 - 2 puff INHALATION RT-QID PRN 06/18/17 12/14/18 Inhaler] Ibuprofen [Motrin] 800 mg PO Q6H PRN 12/14/18 12/14/18 Levofloxacin [Levaquin] 500 mg PO DAILY 12/14/18 12/14/18 Levothyroxine Sodium [Synthroid] 25 mcg PO DAILY 12/14/18 12/14/18 lamoTRIgine [LaMICtal] 50 mg PO TID 12/14/18 12/14/18 methylPREDNISolone [Medrol] 4 mg PO DAILY 12/14/18 12/14/18 traZODone HCL [Desyrel] 100 mg PO DAILY PRN 12/14/18 12/14/18 Previous Rx's Medication Instructions Recorded Ketoconazole [Ketoconazole 2%] 1 applic TOPICAL BID 14 Days #1 02/24/19 tube methylPREDNISolone [Medrol Dose 4 mg PO DIRECTED #1 pack 02/24/19 Pack] Allergies Allergy/AdvReac Type Severity Reaction Status Date / Time nickel Allergy Mild Unknown Verified 12/14/18 16:23 amoxicillin Allergy Rash/Hives Verified 12/14/18 16:23 cephalexin monohydrate Allergy Rash/Hives Verified 12/14/18 16:23 [From Keflex] ciprofloxacin [From Cipro] Allergy Rash/Hives Verified 02/24/19 22:38 clarithromycin [From Biaxin] Allergy Rash/Hives Verified 12/14/18 16:23 oxycodone [From Percocet] Allergy Nausea & Verified 12/14/18 16:23 Vomiting Penicillins Allergy Rash/Hives Verified 12/14/18 16:23 morphine AdvReac Nausea & Verified 12/14/18 16:23 Vomiting Review of Systems ROS Statement: Those systems with pertinent positive or pertinent negative responses have been documented in the HPI. ROS Other: All systems not noted in ROS Statement are negative. Past Medical History Past Medical History: Asthma, GERD/Reflux, Osteoarthritis (OA), Seizure Disorder Additional Past Medical History / Comment(s): last seizure 06/13/16 does not take medication for seizures, back pain History of Any Multi-Drug Resistant Organisms: MRSA Date of last positivie culture/infection: 2011 MDRO Source:: mrsa Past Surgical History: Tubal Ligation Past Anesthesia/Blood Transfusion Reactions: Motion Sickness Additional Past Anesthesia/Blood Transfusion Reaction / Comment(s): pt states has never had anesthesia Past Psychological History: Anxiety, Depression, PTSD Smoking Status: Never smoker Past Alcohol Use History: Rare Past Drug Use History: Cocaine, Marijuana - Past Family History Mother Family Medical History: No Reported History General Exam - General Exam Comments Initial Comments: GENERAL: Well-appearing, well-nourished and in no acute distress. HEAD: Atraumatic, normocephalic. EYES: Pupils equal round and reactive to light, extraocular movements intact, sclera anicteric, conjunctiva are normal. ENT: TMs normal, nares patent, oropharynx clear without exudates. Moist mucous membranes. NECK: Normal range of motion, supple without lymphadenopathy or JVD. LUNGS: Breath sounds clear to auscultation bilaterally and equal. No wheezes rales or rhonchi. HEART: Regular rate and rhythm without murmurs, rubs or gallops. ABDOMEN: Soft, nontender, normoactive bowel sounds. No guarding, no rebound. No masses appreciated. : Deferred EXTREMITIES: Normal range of motion, no pitting or edema. No clubbing or cyanosis. NEUROLOGICAL: Cranial nerves II through XII grossly intact. Normal speech, normal gait. PSYCH: Normal mood, normal affect. Limitations: no limitations Skin exam: Present: rash Expanded Type of lesion: Present: rash Distribution of rash: neck (Posterior aspect), other (Bilateral ears) Description of rash: Present: tenderness, erythematous, crusting, discharge Course Vital Signs 02/24/19 02/24/19 22:29 23:56 Temperature 98.3 F 98 F Pulse Rate 108 H 80 Respiratory 19 18 Rate Blood Pressure 128/80 109/73 O2 Sat by Pulse 99 100 Oximetry Medical Decision Making - Medical Decision Making Patient is a 23-year-old female presents with a rash to her neck and ears. Patient states this does been an ongoing rash for 2 months. Patient did take a course of steroids which improved the rash for a little while and then it has returned. Patient has been taking Benadryl at night. On exam patient has rash consistent with a dermatitis to the posterior aspect of her neck and both ears. Patient was given IM injection of solu-Medrol and Benadryl today. Patient will be discharged home with a steroid pack and ketoconazole cream for her ears. Patient is in agreement with this plan. And she'll follow-up with her drafter (cad) electrical next week. Return parameters were discussed with the patient she verbalized understanding. Case discussed with Dr. Altman. Disposition Clinical Impression: Contact dermatitis, Tinea corporis Disposition: HOME SELF-CARE Condition: Stable Instructions (If sedation given, give patient instructions): Dermatitis (ED) Additional Instructions: Please return to the Emergency Department if symptoms worsen or any other concerns. Follow up with drafter (cad) electrical as discussed. Prescriptions: Ketoconazole [Ketoconazole 2%] 1 applic TOPICAL BID 14 Days #1 tube methylPREDNISolone [Medrol Dose Pack] 4 mg PO DIRECTED #1 pack Is patient prescribed a controlled substance at d/c from ED?: No Referrals: Lance Cruz DO [Primary Care Provider] - 1-2 days
[2019-02-24 23:59] VITALS: BP 109/73; PULSE 80; RESP 18; TEMP 98
== END 2019-02-25 00:14 | disposition home or self-care (01) ==
LOC: EC 22:15
DX: B35.4 Tinea corporis (principal); T65.6X1A Toxic effect of paints and dyes, not elsewhere classified, accidental (unintentional), initial encounter; L23.4 Allergic contact dermatitis due to dyes; J45.909 Unspecified asthma, uncomplicated; G40.909 Epilepsy, unspecified, not intractable, without status epilepticus; F32.9 Major depressive disorder, single episode, unspecified; Z79.890 Hormone replacement therapy; Z79.899 Other long term (current) drug therapy; Z91.048 Other nonmedicinal substance allergy status; Z88.0 Allergy status to penicillin; Z88.1 Allergy status to other antibiotic agents; Z88.5 Allergy status to narcotic agent; Z88.8 Allergy status to other drugs, medicaments and biological substances
CPT/HCPCS: 99282; 96372 ×2; J1200; J2930

== ENCOUNTER 2019-03-26 21:35 | Emergency (ER) | payer OTHER ==
--- NOTE | 2019-03-26 22:01 | ED ---
Skin/Abscess/FB HPI - General Source: patient Mode of arrival: ambulatory Limitations: no limitations <Mohini Hoffmann - Last Filed: 03/27/19 00:21> <DeborahaaronClive - Last Filed: 03/27/19 01:17> - General Chief complaint: Skin/Abscess/Foreign Body Stated complaint: Rash Time Seen by Provider: 03/26/19 21:43 - History of Present Illness Initial comments: 24-year-old female past medical past medical history presenting today for chief complaint of rash. Patient states that she has had a rash on her neck for the p ast 3 months she states it began in December. She states it began 4 days after dying her hair. Patient states the rash was patient read localized to the posterior aspect of her neck and behind her ears. Patient states she's been following her primary care provider for the complaint. She states she is going to be following up with a mortgage closing clerk next as mupirocin and antifungals do not appear to be working. Patient states that yesterday she developed a rash from head to toe. Appears to fit in characteristic of the rash that is found on the posterior aspect of her neck. She denies any involvement of the palms or soles. Patient states it is extremely itchy. She states it is red she states there is no lesions in her mouth she has no redness of her eyes. Patient denies any recent STDs. Denies HIV. Denies chronic steroid use. Patient denies history of cancer. Patient denies any new medications. She states she did have a medication reaction to ciprofloxacin 8 weeks prior. She states she is not currently taking any medications besides when necessary Aleve and Benadryl. Patient states that Benadryl does not seem to be helping for the itchiness. Patient had recent STD testing within the last 4 weeks states they were negative. Patient denies fevers she denies pain states it is itching more so. Patient denies any specific new exposures. Denies travel. Denies diarrhea padmini es vomiting. Denies upper respiratory symptoms. Patient states she has chronic arthritis. She denies tick bites, or history of lung disease. Denies any headache neck stiffness dizziness. Remaining review of system negative. Upon arrival patient appears nontoxic while she is afebrile. Heart rate is noted to be elevated otherwise vital signs within a septal limits no hypotension. Patient vaccinated. (Mohini Hoffmann) - Related Data Home Medications Medication Instructions Recorded Confirmed Albuterol Inhaler [Ventolin Hfa 1 - 2 puff INHALATION RT-QID PRN 06/18/17 12/14/18 Inhaler] Ibuprofen [Motrin] 800 mg PO Q6H PRN 12/14/18 12/14/18 Levofloxacin [Levaquin] 500 mg PO DAILY 12/14/18 12/14/18 Levothyroxine Sodium [Synthroid] 25 mcg PO DAILY 12/14/18 12/14/18 lamoTRIgine [LaMICtal] 50 mg PO TID 12/14/18 12/14/18 methylPREDNISolone [Medrol] 4 mg PO DAILY 12/14/18 12/14/18 traZODone HCL [Desyrel] 100 mg PO DAILY PRN 12/14/18 12/14/18 Previous Rx's Medication Instructions Recorded Ketoconazole [Ketoconazole 2%] 1 applic TOPICAL BID 14 Days #1 02/24/19 tube methylPREDNISolone [Medrol Dose 4 mg PO DIRECTED #1 pack 02/24/19 Pack] predniSONE 50 mg PO DAILY 4 Days #4 tab 03/27/19 Allergies Allergy/AdvReac Type Severity Reaction Status Date / Time nickel Allergy Mild Unknown Verified 03/26/19 21:42 amoxicillin Allergy Rash/Hives Verified 03/26/19 21:42 cephalexin monohydrate Allergy Rash/Hives Verified 03/26/19 21:42 [From Keflex] ciprofloxacin [From Cipro] Allergy Rash/Hives Verified 03/26/19 21:42 clarithromycin [From Biaxin] Allergy Rash/Hives Verified 03/26/19 21:42 oxycodone [From Percocet] Allergy Nausea & Verified 03/26/19 21:42 Vomiting Penicillins Allergy Rash/Hives Verified 03/26/19 21:42 morphine AdvReac Nausea & Verified 03/26/19 21:42 Vomiting Review of Systems ROS Other: All systems not noted in ROS Statement are negative. <Mohini Hoffmann - Last Filed: 03/27/19 00:21> ROS Other: All systems not noted in ROS Statement are negative. <Clive Altman - Last Filed: 03/27/19 01:17> ROS Statement: Those systems with pertinent positive or pertinent negative responses have been documented in the HPI. Past Medical History Past Medical History: Asthma, GERD/Reflux, Osteoarthritis (OA), Seizure Disorder Additional Past Medical History / Comment(s): last seizure 06/13/16 does not take medication for seizures, back pain History of Any Multi-Drug Resistant Organisms: MRSA Date of last positivie culture/infection: 2011 MDRO Source:: mrsa Past Surgical History: Tubal Ligation Past Anesthesia/Blood Transfusion Reactions: Motion Sickness Additional Past Anesthesia/Blood Transfusion Reaction / Comment(s): pt states has never had anesthesia Past Psychological History: Anxiety, Depression, PTSD Smoking Status: Never smoker Past Alcohol Use History: Rare Past Drug Use History: Cocaine, Marijuana - Past Family History Mother Family Medical History: No Reported History <Mohini Hoffmann Marlen - Last Filed: 03/27/19 00:21> General Exam Limitations: no limitations <Mohini Hoffmann Marlen - Last Filed: 03/27/19 00:21> - General Exam Comments Initial Comments: General: The patient is awake and alert, in no distress, and does not appear acutely ill. Eye: +3 mm pupils are equal, round and reactive to light, extra-ocular movem ents are intact. No nystagmus. There is normal conjunctiva bilaterally. No signs of icterus. Ears, nose, mouth and throat: There are moist mucous membranes and no oral l esions. Neck: The neck is supple, there is no tenderness or JVD. Cardiovascular: There is a regular rate and rhythm. No murmur, rub or gallop is appreciated. Respiratory: Lungs are clear to auscultation, respirations are non-labored, breath sounds are equal. No wheezes, stridor, rales, or rhonchi. Gastrointestinal: Soft, non-distended, non-tender abdomen without masses or organomegaly noted. There is no rebound or guarding present. Pelvic: discharge in the vault, no bleeding, string coming from os, no adnexal, cervical motion tenderness. Musculoskeletal: Normal ROM, no tenderness. Strength 5/5. Sensation intact. Pulses equal bilaterally 2+. Neurological: A&O x 3. CN II-XII intact, There are no obvious motor or sensory deficits. Coordination appears grossly intact. Speech is normal. Skin: Skin is warm and dry. Maculopapular rash from head to toe, no palm or sole involvement, areas of excoriation. No target lesions. Psychiatric: Cooperative, appropriate mood & affect, normal judgment. (Mohini Hoffmann) Course Vital Signs 03/26/19 03/26/19 03/27/19 21:36 23:32 00:23 Temperature 98.3 F 98.2 F Pulse Rate 120 H 105 H 92 Respiratory 20 17 18 Rate Blood Pressure 106/70 135/91 119/79 O2 Sat by Pulse 95 97 100 Oximetry Medical Decision Making - Lab Data Result diagrams: 03/26/19 22:35 03/26/19 22:35 <Mohini Hoffmann - Last Filed: 03/27/19 00:21> - Lab Data Result diagrams: 03/26/19 22:35 03/26/19 22:35 <Clive Altman - Last Filed: 03/27/19 01:17> - Medical Decision Making 24-year-old female presenting for rash. Patient has had on-and-off rash or months. No new medication she states she has stopped all medications at home. Patient states the rash is itchy. Maculopapular rash without target lesions or oral involvement on examination. There is no blistering or vesicles. No signs of Jake Thony's. Patient has no history of fever. No upper respiratory s ymptoms. Patient is vaccinated. Patient does not appear toxic she is not hypotensive. She denies pain. Patient is not immunocompromised a history of cancer or HIV, AIDS or chronic steroid use. Patient states Benadryl is not working at home. Patient continues to appear stable laboratory studies are unremarkable. Patient states her itching subsided after the Pepcid Benadryl & Medrol. Patient was evaluated and personal attending provider Dr. Altman. This time we feel patient is stable for discharge with outpatient dermatological follow-up and primary care follow-up. Patient is agreeable to this care plan discharge at this time stating she is ready to go home continues to remain stable. Return parameters were discussed at length in in detail patient verbalized understanding (Mohini Hoffmann) I saw this patient in conjunction with the physician review assistant. I performed independent history and physical exam. Agree with case management. (Clive Altman) - Lab Data Lab Results 03/26/19 03/26/19 03/26/19 Range/Units 22:35 22:35 23:27 WBC 10.1 (3.8-10.6) k/uL RBC 4.80 (3.80-5.40) m/uL Hgb 14.0 (11.4-16.0) gm/dL Hct 42.8 (34.0-46.0) % MCV 89.1 (80.0-100.0) fL MCH 29.1 (25.0-35.0) pg MCHC 32.7 (31.0-37.0) g/dL RDW 14.7 (11.5-15.5) % Plt Count 392 (150-450) k/uL Neutrophils % 66 % Lymphocytes % 18 % Monocytes % 5 % Eosinophils % 9 % Basophils % 0 % Neutrophils # 6.6 (1.3-7.7) k/uL Lymphocytes # 1.8 (1.0-4.8) k/uL Monocytes # 0.5 (0-1.0) k/uL Eosinophils # 0.9 H (0-0.7) k/uL Basophils # 0.0 (0-0.2) k/uL Sodium 139 (137-145) mmol/L Potassium 3.9 (3.5-5.1) mmol/L Chloride 105 (98-107) mmol/L Carbon Dioxide 26 (22-30) mmol/L Anion Gap 8 mmol/L BUN 18 H (7-17) mg/dL Creatinine 0.88 (0.52-1.04) mg/dL Est GFR (CKD-EPI)AfAm >90 (>60 ml/min/1.73 sqM) Est GFR (CKD-EPI)NonAf >90 (>60 ml/min/1.73 sqM) Glucose 80 (74-99) mg/dL Calcium 9.5 (8.4-10.2) mg/dL Total Bilirubin 0.4 (0.2-1.3) mg/dL AST 20 (14-36) U/L ALT 18 (9-52) U/L Alkaline Phosphatase 76 (38-126) U/L C-Reactive Protein <5.0 (<10.0) mg/L Total Protein 6.8 (6.3-8.2) g/dL Albumin 4.3 (3.5-5.0) g/dL Urine Color Urine Appearance (Clear) Urine pH (5.0-8.0) Ur Specific Alba (1.001-1.035) Urine Protein (Negative) Urine Glucose (UA) (Negative) Urine Ketones (Negative) Urine Blood (Negative) Urine Nitrite (Negative) Urine Bilirubin (Negative) Urine Urobilinogen (<2.0) mg/dL Ur Leukocyte Esterase (Negative) Urine RBC (0-5) /hpf Urine WBC (0-5) /hpf Ur Squamous Epith Cells (0-4) /hpf Hyaline Casts (0-2) /lpf Urine Mucus (None) /hpf Trichomonas Ag (Rapid) Negative (Negative) 03/26/19 Range/Units 23:27 WBC (3.8-10.6) k/uL RBC (3.80-5.40) m/uL Hgb (11.4-16.0) gm/dL Hct (34.0-46.0) % MCV (80.0-100.0) fL MCH (25.0-35.0) pg MCHC (31.0-37.0) g/dL RDW (11.5-15.5) % Plt Count (150-450) k/uL Neutrophils % % Lymphocytes % % Monocytes % % Eosinophils % % Basophils % % Neutrophils # (1.3-7.7) k/uL Lymphocytes # (1.0-4.8) k/uL Monocytes # (0-1.0) k/uL Eosinophils # (0-0.7) k/uL Basophils # (0-0.2) k/uL Sodium (137-145) mmol/L Potassium (3.5-5.1) mmol/L Chloride (98-107) mmol/L Carbon Dioxide (22-30) mmol/L Anion Gap mmol/L BUN (7-17) mg/dL Creatinine (0.52-1.04) mg/dL Est GFR (CKD-EPI)AfAm (>60 ml/min/1.73 sqM) Est GFR (CKD-EPI)NonAf (>60 ml/min/1.73 sqM) Glucose (74-99) mg/dL Calcium (8.4-10.2) mg/dL Total Bilirubin (0.2-1.3) mg/dL AST (14-36) U/L ALT (9-52) U/L Alkaline Phosphatase (38-126) U/L C-Reactive Protein (<10.0) mg/L Total Protein (6.3-8.2) g/dL Albumin (3.5-5.0) g/dL Urine Color Yellow Urine Appearance Cloudy H (Clear) Urine pH 6.0 (5.0-8.0) Ur Specific Alba 1.033 (1.001-1.035) Urine Protein 1+ H (Negative) Urine Glucose (UA) Negative (Negative) Urine Ketones Negative (Negative) Urine Blood Negative (Negative) Urine Nitrite Negative (Negative) Urine Bilirubin Negative (Negative) Urine Urobilinogen 2.0 (<2.0) mg/dL Ur Leukocyte Esterase Small H (Negative) Urine RBC 1 (0-5) /hpf Urine WBC 5 (0-5) /hpf Ur Squamous Epith Cells 3 (0-4) /hpf Hyaline Casts 205 H (0-2) /lpf Urine Mucus Many H (None) /hpf Trichomonas Ag (Rapid) (Negative) - EKG Data EKG Comments: Ventricular rate 109 bpm, MO interval 158 ms, QRS scientologist 72 ms, QT/QTC 310/417 ms. Sinus tachycardia. Nonspecific T-wave. No ST elevation or depression. EKG personally interpreted. (Mohini Hoffmann) Disposition Is patient prescribed a controlled substance at d/c from ED?: No Time of Disposition: 00:13 <Mohini Hoffmann - Last Filed: 03/27/19 00:21> <Clive Altman - Last Filed: 03/27/19 01:17> Clinical Impression: Rash Disposition: HOME SELF-CARE Condition: Good Instructions (If sedation given, give patient instructions): Acute Rash (ED), Adverse Drug Reaction (ED) Additional Instructions: Please use medication as discussed. Please follow-up with family doctor in the next 2 days. PLease discontinue medications discussed. Please follow-up with neurologist for the change in seizure medication. Please return to emergency room if the symptoms increase or worsen or for any other concerns-blisters, mouth lesions, fever, increases symptoms, pain. Prescriptions: predniSONE 50 mg PO DAILY 4 Days #4 tab Referrals: Lance Cruz DO [Primary Care Provider] - 1-2 days
[2019-03-26] MEDS ORDERED: FAMOTIDINE 20 MG/2 ML VIAL IV STA (22:17)
[2019-03-26] MEDS ORDERED: diphenhydrAMINE 50 MG/ML 1 ML VIAL IVP STA (22:17)
[2019-03-26] MEDS ORDERED: methylPREDNISolone SOD SUCCI 125 MG/2 ML VIAL IV STA (22:17)
[2019-03-26 22:53] LABS: Basophils % (A) 0 %; Eosinophils # (A) 0.9 k/uL (0-0.7); Eosinophils % (A) 9 %; HCT 42.8 % (34.0-46.0); Lymphocytes # (A) 1.8 k/uL (1.0-4.8); Lymphocytes % (A) 18 %; MCH 29.1 pg (25.0-35.0); MCHC 32.7 g/dL (31.0-37.0); MCV 89.1 fL (80.0-100.0); Mean Platelet Volume 6.9; Monocytes # (A) 0.5 k/uL (0-1.0); Monocytes % (A) 5 %; Neutrophils # (A) 6.6 k/uL (1.3-7.7); Neutrophils % (A) 66 %; Platelet Count 392 k/uL (150-450); RDW 14.7 % (11.5-15.5); WBC 10.1 k/uL (3.8-10.6)
[2019-03-26 23:02] LABS: ALT 18 U/L (9-52); AST 20 U/L (14-36); African American GFR (CKD) >90 (>60 ml/min/1.73 sqM); Albumin 4.3 g/dL (3.5-5.0); Alkaline Phosphatase 76 U/L (38-126); Anion Gap 8 mmol/L; Blood Urea Nitrogen 18 mg/dL (7-17); C Reactive Protein <5.0 mg/L (<10.0); Calcium 9.5 mg/dL (8.4-10.2); Carbon Dioxide 26 mmol/L (22-30); Chloride 105 mmol/L (98-107); Glucose 80 mg/dL (74-99); Non-African American GFR(CKD) >90 (>60 ml/min/1.73 sqM); Potassium 3.9 mmol/L (3.5-5.1); Sodium 139 mmol/L (137-145); Total Bilirubin 0.4 mg/dL (0.2-1.3); Total Protein 6.8 g/dL (6.3-8.2)
[2019-03-26 23:41] LABS: Appearance,Urine Cloudy (Clear); Bilirubin,Urine Negative (Negative); Blood,Urine Negative (Negative); Color,Urine Yellow; Glucose,Urine (UA) Negative (Negative); Hyaline Casts,Urine 205 /lpf (0-2); Ketones,Urine Negative (Negative); Leukocyte Esterase,Urine Small (Negative); Mucus,Urine Many /hpf; Nitrite,Urine Negative (Negative); Protein,Urine 1+ (Negative); RBC,Urine 1 /hpf (0-5); Specific Gravity,Urine 1.033 (1.001-1.035); Squamous Epithelial Cell,Urine 3 /hpf (0-4); WBC,Urine 5 /hpf (0-5)
[2019-03-27 00:25] VITALS: BP 119/79; PULSE 92; RESP 18; TEMP 98.2
[2019-03-27 12:26] LABS: HIV 1 AB Non-Reactive (Non-Reactive); HIV 2 AB Non-Reactive (Non-Reactive); HIV AB P24 Non-Reactive (Non-Reactive); HIV P24 AG Non-Reactive (Non-Reactive)
[2019-03-28 14:07] LABS: N. gonorrhoeae,PCR Negative (Neg,Equiv); Neisseria Source Vagina
[2019-03-28 14:08] LABS: C. trachomatis,PCR Negative (Neg,Equiv); Chlamydia trachomatis Source Vagina
== END 2019-03-27 00:25 | disposition home or self-care (01) ==
LOC: EC 21:35
DX: R21 Rash and other nonspecific skin eruption (principal); J45.909 Unspecified asthma, uncomplicated; G40.909 Epilepsy, unspecified, not intractable, without status epilepticus; M19.90 Unspecified osteoarthritis, unspecified site; F32.9 Major depressive disorder, single episode, unspecified; Z88.0 Allergy status to penicillin; Z88.1 Allergy status to other antibiotic agents; Z88.5 Allergy status to narcotic agent; Z91.048 Other nonmedicinal substance allergy status; Z79.52 Long term (current) use of systemic steroids; Z79.890 Hormone replacement therapy; Z79.899 Other long term (current) drug therapy; Z86.14 Personal history of Methicillin resistant Staphylococcus aureus infection
CPT/HCPCS: 36415; 93005; 80053; 85025; 86140; 86431; 81001; 87808; 87491; 87591; 87070; 87205; 87390; 99283; 96374; 96375 ×2; J1200; J2930

== ENCOUNTER 2019-03-27 10:37 | Emergency (ER) | payer OTHER ==
[2019-03-27 11:11] VITALS: BP 118/81; PULSE 90; RESP 18; TEMP 99.2
[2019-03-27] MEDS ORDERED: KETOROLAC 30 MG/ML 1 ML VIAL IM STA (12:01)
[2019-03-27] MEDS ORDERED: FAMOTIDINE 20 MG TAB PO STA (12:01)
--- NOTE | 2019-03-27 12:04 | ED ---
General Adult HPI - General Chief complaint: Skin/Abscess/Foreign Body Stated complaint: rash all over-revisit Time Seen by Provider: 03/27/19 11:19 Source: patient, RN notes reviewed Mode of arrival: ambulatory Limitations: no limitations - History of Present Illness Initial comments: 24-year-old female with a past medical history of asthma, GERD, seizure disorder presents to the emergency department for a chief complaint of rash. Patient states this has been ongoing for several months. States that she used a hair dye 3 months ago and was started on her head and neck. States she has taken antifungals for this and it does not help. States she has a strong history of atopic dermatitis. Patient states over the past week this has worsened and is now on her chest abdomen and back. States it is very pruritic and somewhat painful. Denies fevers or chills. Denies any upper respiratory symptoms. Denies any sloughing skin. Patient was seen here yesterday and given steroids but has not yet improved. 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 Denies any chance of . Denies any abdominal pain.Patient has no other complaints at this time including shortness of breath, chest pain, abdominal pain, nausea or vomiting, headache, or visual changes. - Related Data Home Medications Medication Instructions Recorded Confirmed Albuterol Inhaler [Ventolin Hfa 1 - 2 puff INHALATION RT-QID PRN 06/18/17 03/27/19 Inhaler] Ibuprofen [Motrin] 800 mg PO TID PRN 12/14/18 03/27/19 Albuterol Nebulized [Ventolin 2.5 mg INHALATION RT-QID PRN 03/27/19 03/27/19 Nebulized] Naproxen Sodium [Aleve] 220 mg PO DAILY PRN 03/27/19 03/27/19 diphenhydrAMINE HCL [Benadryl] 25 mg PO Q6H PRN 03/27/19 03/27/19 Previous Rx's Medication Instructions Recorded Famotidine [Pepcid] 20 mg PO BID #30 tablet 03/27/19 Allergies Allergy/AdvReac Type Severity Reaction Status Date / Time nickel Allergy Mild Unknown Verified 03/27/19 11:11 amoxicillin Allergy Rash/Hives Verified 03/27/19 11:11 cephalexin monohydrate Allergy Rash/Hives Verified 03/27/19 11:11 [From Keflex] ciprofloxacin [From Cipro] Allergy Rash/Hives Verified 03/27/19 11:11 clarithromycin [From Biaxin] Allergy Rash/Hives Verified 03/27/19 11:11 oxycodone [From Percocet] Allergy Nausea & Verified 03/27/19 11:11 Vomiting Penicillins Allergy Rash/Hives Verified 03/27/19 11:11 morphine AdvReac Nausea & Verified 03/27/19 11:11 Vomiting Review of Systems ROS Statement: Those systems with pertinent positive or pertinent negative responses have been documented in the HPI. ROS Other: All systems not noted in ROS Statement are negative. Past Medical History Past Medical History: Asthma, GERD/Reflux, Osteoarthritis (OA), Seizure Disorder Additional Past Medical History / Comment(s): last seizure 06/13/16 does not take medication for seizures, back pain History of Any Multi-Drug Resistant Organisms: MRSA Date of last positivie culture/infection: 2011 MDRO Source:: ear Past Surgical History: Tubal Ligation Past Anesthesia/Blood Transfusion Reactions: Motion Sickness Additional Past Anesthesia/Blood Transfusion Reaction / Comment(s): pt states has never had anesthesia Past Psychological History: Anxiety, Depression, PTSD Smoking Status: Never smoker Past Alcohol Use History: Rare Past Drug Use History: Cocaine, Marijuana - Past Family History Mother Family Medical History: No Reported History General Exam Limitations: no limitations General appearance: alert, in no apparent distress Head exam: Present: atraumatic, normocephalic, normal inspection Eye exam: Present: normal appearance, PERRL, EOMI. Absent: scleral icterus, conjunctival injection, periorbital swelling ENT exam: Present: normal exam, mucous membranes moist Neck exam: Present: normal inspection, full ROM. Absent: tenderness, m eningismus, lymphadenopathy Respiratory exam: Present: normal lung sounds bilaterally. Absent: respiratory distress, wheezes, rales, rhonchi, stridor Cardiovascular Exam: Present: regular rate, normal rhythm, normal heart sounds. Absent: systolic murmur, diastolic murmur, rubs, gallop, clicks GI/Abdominal exam: Present: soft Skin exam: Present: erythema (Erythematous coalescing rash of the neck chest back. Blanching. No excoriations. Negative Nikolsky sign. Patient also has nonblanching petechial rash of the lower extremities with some mild patchy ecchymosis) Course Vital Signs 03/27/19 11:09 Temperature 99.2 F Pulse Rate 90 Respiratory 18 Rate Blood Pressure 118/81 O2 Sat by Pulse 98 Oximetry Medical Decision Making - Medical Decision Making 24-year-old female presents to the emergency department for a chief complaint of rash. This has been ongoing several months but worsened in the past week or so. No fevers or systemic symptoms. Patient does admit to pruritis and mild pain. Vitals are stable. On exam patient has coalescing erythematous rash noted to the chest back and abdomen. Also has mild petechial rash on the lower extremities mostly on the anterior thighs. Does have some scattered ecchymosis of the lower extremities as well. No lesions of the palm soles or mucous membranes. Negative Nikolsky sign. Patient did have lab work done about 12 hours ago which was generally unremarkable. Patient was given steroid prescription at that time but has not yet had filled. Dr. Lucas also examined the patient. At this time we feel patient can follow up at her dermatology appointment on Wednesday. Recommended return if she has any worsening symptoms. Disposition Clinical Impression: Rash Disposition: HOME SELF-CARE Condition: Good Instructions (If sedation given, give patient instructions): Acute Rash (ED) Additional Instructions: Please take her steroids as directed. Please follow-up with primary care and dermatology at your appointment on Wednesday. Return to the emergency department if you have any worsening symptoms. Prescriptions: Famotidine [Pepcid] 20 mg PO BID #30 tablet Is patient prescribed a controlled substance at d/c from ED?: No Referrals: Lance Cruz DO [Primary Care Provider] - 1-2 days Franchesca Rossi MD [Family Provider] - 1-2 days Time of Disposition: 12:07
== END 2019-03-27 12:32 | disposition home or self-care (01) ==
LOC: EC 10:37
DX: L29.9 Pruritus, unspecified (principal); J45.909 Unspecified asthma, uncomplicated; Z86.14 Personal history of Methicillin resistant Staphylococcus aureus infection; Z79.899 Other long term (current) drug therapy; Z91.048 Other nonmedicinal substance allergy status; Z88.0 Allergy status to penicillin; Z88.1 Allergy status to other antibiotic agents; Z88.5 Allergy status to narcotic agent
CPT/HCPCS: 99282; 96372; J1885; 99283

== ENCOUNTER → 2019-06-01 | Outpatient (CLI) | payer OTHER ==
--- NOTE | 2019-06-01 10:00 | US ---
EXAMINATION TYPE: US gallbladder DATE OF EXAM: 06/01/2019 COMPARISON: US CLINICAL HISTORY: R10.11 ABD PAIN RUQ. Pt states post prandial pain x 1 month EXAM MEASUREMENTS: Liver Length: 14.2 cm Gallbladder Wall: 0.2 cm CBD: 0.3 cm Right Kidney: 9.2 x 4.2 x 4.5 cm Pancreas: wnl, tail obscured by overlying bowel gas Liver: wnl, visualized mostly intercostally Gallbladder: wnl Evidence for sonographic Garibay's sign: No CBD: wnl Right Kidney: wnl, lower pole gassed out IMPRESSION: 1. No distinct abnormality seen.
== END | disposition home or self-care (01) ==
LOC: RADUSWWP 08:13
PROVIDERS: ATTEND Family Medicine
DX: R10.11 Right upper quadrant pain (principal)
CPT/HCPCS: 76705

== ENCOUNTER 2019-07-05 14:47 | Emergency (ER) | payer OTHER ==
[2019-07-05 14:55] VITALS: RESP 18
[2019-07-05 15:05] VITALS: PULSE 91
[2019-07-05] MEDS ORDERED: SODIUM CHLORIDE 0.9% 1,000 ML IV STA ×2 (15:08→16:09)
--- NOTE | 2019-07-05 15:23 | ED ---
General Adult HPI - General Chief complaint: Abdominal Pain Stated complaint: Abd pain, vomiting Time Seen by Provider: 07/05/19 14:58 Source: patient, RN notes reviewed Mode of arrival: ambulatory Limitations: no limitations - History of Present Illness Initial comments: 24-year-old female with a past medical history of asthma, GERD, seizure disorder, thyroid disorder presents to the emergency determine for a chief complaint of epigastric abdominal pain. Patient has been ongoing about 4 days. States she is also nauseous and vomiting. States she is not able to keep down much solid food. Patient has also been having diarrhea several times daily for the past few days. Denies fevers or chills. States that she went to her son's doctor's appointment today and her doctor noticed that she was in pain. States that he ordered an ultrasound of her gallbladder. She had this done which was normal however the biochemistry technician at the outpatient ultrasound office told her since it was close to thanksgiving she might as well just go to the emergency dep artment.Patient has no other complaints at this time including shortness of breath, chest pain, headache, or visual changes. - Related Data Home Medications Medication Instructions Recorded Confirmed Albuterol Inhaler [Ventolin Hfa 1 - 2 puff INHALATION RT-QID PRN 06/18/17 03/27/19 Inhaler] Ibuprofen [Motrin] 800 mg PO TID PRN 12/14/18 03/27/19 Albuterol Nebulized [Ventolin 2.5 mg INHALATION RT-QID PRN 03/27/19 03/27/19 Nebulized] Naproxen Sodium [Aleve] 220 mg PO DAILY PRN 03/27/19 03/27/19 diphenhydrAMINE HCL [Benadryl] 25 mg PO Q6H PRN 03/27/19 03/27/19 Previous Rx's Medication Instructions Recorded Famotidine [Pepcid] 20 mg PO BID #30 tablet 03/27/19 predniSONE 50 mg PO DAILY #4 tablet 03/27/19 Ondansetron [Zofran ODT] 4 mg PO Q8HR PRN #15 tab 07/05/19 Allergies Allergy/AdvReac Type Severity Reaction Status Date / Time nickel Allergy Mild Unknown Verified 03/27/19 11:11 amoxicillin Allergy Rash/Hives Verified 03/27/19 11:11 cephalexin monohydrate Allergy Rash/Hives Verified 03/27/19 11:11 [From Keflex] ciprofloxacin [From Cipro] Allergy Rash/Hives Verified 03/27/19 11:11 clarithromycin [From Biaxin] Allergy Rash/Hives Verified 03/27/19 11:11 oxycodone [From Percocet] Allergy Nausea & Verified 03/27/19 11:11 Vomiting Penicillins Allergy Rash/Hives Verified 03/27/19 11:11 morphine AdvReac Nausea & Verified 03/27/19 11:11 Vomiting Review of Systems ROS Statement: Those systems with pertinent positive or pertinent negative responses have been documented in the HPI. ROS Other: All systems not noted in ROS Statement are negative. Past Medical History Past Medical History: Asthma, GERD/Reflux, Osteoarthritis (OA), Seizure Disorder, Thyroid Disorder Additional Past Medical History / Comment(s): last seizure 06/13/16 does not take medication for seizures, back pain History of Any Multi-Drug Resistant Organisms: MRSA Date of last positivie culture/infection: 2011 MDRO Source:: ear Past Surgical History: Tubal Ligation Past Anesthesia/Blood Transfusion Reactions: Motion Sickness Additional Past Anesthesia/Blood Transfusion Reaction / Comment(s): pt states has never had anesthesia Past Psychological History: Anxiety, Bipolar, Depression, PTSD Smoking Status: Never smoker Past Alcohol Use History: Rare Past Drug Use History: Marijuana - Past Family History Mother Family Medical History: No Reported History General Exam Limitations: no limitations General appearance: alert, in no apparent distress Head exam: Present: atraumatic, normocephalic, normal inspection Eye exam: Present: normal appearance, PERRL, EOMI. Absent: scleral icterus, conjunctival injection, periorbital swelling ENT exam: Present: normal exam, mucous membranes moist Neck exam: Present: normal inspection, full ROM. Absent: tenderness, meningismus, lymphadenopathy Respiratory exam: Present: normal lung sounds bilaterally. Absent: respiratory distress, wheezes, rales, rhonchi, stridor Cardiovascular Exam: Present: regular rate, normal rhythm, normal heart sounds. Absent: systolic murmur, diastolic murmur, rubs, gallop, clicks GI/Abdominal exam: Present: soft, tenderness (mild tenderness epigastric area without guarding or rebound), normal bowel sounds. Absent: distended, guarding, rebound, rigid Expanded GI/Abdominal exam: Absent: psoas sign, obturator sign, heel tap sign, Garibay's sign, Rovsing's sign, tenderness at McBurney's Point Course Vital Signs 07/05/19 07/05/19 07/05/19 14:50 15:04 16:40 Temperature 98.0 F 98.2 F Pulse Rate 135 H 91 91 Respiratory 18 18 18 Rate Blood Pressure 123/78 124/92 O2 Sat by Pulse 98 99 100 Oximetry Medical Decision Making - Medical Decision Making Outpatient ultrasound of the gallbladder obtained today was reviewed which showed no gallstones or evidence for acute cholecystitis. 24-year-old female presents for nausea vomiting diarrhea and epigastric pain 4 days. Patient initially tachycardic on presentation however heart rate improved before fluids given. CBC CMP show evidence of dehydration. Urinalysis also shows 4+ ketones. Patient was given [address] abdomen and pelvis with contrast was obtained which showed a normal appendix. There was an incidental finding of a left ovarian cyst. Patient is not having any pain in this area. Patient was reevaluated after fluids given. She is actually doing much better a nd is well appearing. Talking on the phone. She passed by mouth challenge test. At this time patient can be discharged home after rehydration with Zofran for nausea. I discussed taking small sips of fluids frequently as well as eating a bland diet. Discussed following up with primary care in the next few days. If patient has any worsening symptoms she is aware she should return to the emergency department. - Lab Data Result diagrams: 07/05/19 15:07 07/05/19 15:07 Lab Results 07/05/19 07/05/19 07/05/19 Range/Units 15:07 15:07 15:07 WBC 10.1 (3.8-10.6) k/uL RBC 5.31 (3.80-5.40) m/uL Hgb 15.4 (11.4-16.0) gm/dL Hct 46.8 H (34.0-46.0) % MCV 88.1 (80.0-100.0) fL MCH 28.9 (25.0-35.0) pg MCHC 32.8 (31.0-37.0) g/dL RDW 12.0 (11.5-15.5) % Plt Count 375 (150-450) k/uL Neutrophils % 73 % Lymphocytes % 20 % Monocytes % 4 % Eosinophils % 2 % Basophils % 0 % Neutrophils # 7.4 (1.3-7.7) k/uL Lymphocytes # 2.0 (1.0-4.8) k/uL Monocytes # 0.4 (0-1.0) k/uL Eosinophils # 0.2 (0-0.7) k/uL Basophils # 0.0 (0-0.2) k/uL Sodium 140 (137-145) mmol/L Potassium 4.4 (3.5-5.1) mmol/L Chloride 107 (98-107) mmol/L Carbon Dioxide 18 L (22-30) mmol/L Anion Gap 15 mmol/L BUN 14 (7-17) mg/dL Creatinine 0.70 (0.52-1.04) mg/dL Est GFR (CKD-EPI)AfAm >90 (>60 ml/min/1.73 sqM) Est GFR (CKD-EPI)NonAf >90 (>60 ml/min/1.73 sqM) Glucose 75 (74-99) mg/dL Plasma Lactic Acid Chuck 0.8 (0.7-2.0) mmol/L Calcium 10.3 H (8.4-10.2) mg/dL Total Bilirubin 1.2 (0.2-1.3) mg/dL AST 30 (14-36) U/L ALT 26 (9-52) U/L Alkaline Phosphatase 88 (38-126) U/L Total Protein 8.3 H (6.3-8.2) g/dL Albumin 5.1 H (3.5-5.0) g/dL Amylase 55 (30-110) U/L Lipase 85 (23-300) U/L Urine Color Urine Appearance (Clear) Urine pH (5.0-8.0) Ur Specific [place] (1.001-1.035) Urine Protein (Negative) Urine Glucose (UA) (Negative) Urine Ketones (Negative) Urine Blood (Negative) Urine Nitrite (Negative) Urine Bilirubin (Negative) Urine Urobilinogen (<2.0) mg/dL Ur Leukocyte Esterase (Negative) Urine RBC (0-5) /hpf Urine WBC (0-5) /hpf Ur Squamous Epith Cells (0-4) /hpf Urine Bacteria (None) /hpf Urine Mucus (None) /hpf Urine HCG, Qual (Not Detectd) 07/05/19 07/05/19 Range/Units 15:07 15:07 WBC (3.8-10.6) k/uL RBC (3.80-5.40) m/uL Hgb (11.4-16.0) gm/dL Hct (34.0-46.0) % MCV (80.0-100.0) fL MCH (25.0-35.0) pg MCHC (31.0-37.0) g/dL RDW (11.5-15.5) % Plt Count (150-450) k/uL Neutrophils % % Lymphocytes % % Monocytes % % Eosinophils % % Basophils % % Neutrophils # (1.3-7.7) k/uL Lymphocytes # (1.0-4.8) k/uL Monocytes # (0-1.0) k/uL Eosinophils # (0-0.7) k/uL Basophils # (0-0.2) k/uL Sodium (137-145) mmol/L Potassium (3.5-5.1) mmol/L Chloride (98-107) mmol/L Carbon Dioxide (22-30) mmol/L Anion Gap mmol/L BUN (7-17) mg/dL Creatinine (0.52-1.04) mg/dL Est GFR (CKD-EPI)AfAm (>60 ml/min/1.73 sqM) Est GFR (CKD-EPI)NonAf (>60 ml/min/1.73 sqM) Glucose (74-99) mg/dL Plasma Lactic Acid Chuck (0.7-2.0) mmol/L Calcium (8.4-10.2) mg/dL Total Bilirubin (0.2-1.3) mg/dL AST (14-36) U/L ALT (9-52) U/L Alkaline Phosphatase (38-126) U/L Total Protein (6.3-8.2) g/dL Albumin (3.5-5.0) g/dL Amylase (30-110) U/L Lipase (23-300) U/L Urine Color Yellow Urine Appearance Cloudy H (Clear) Urine pH 6.0 (5.0-8.0) Ur Specific [place] 1.037 H (1.001-1.035) Urine Protein 1+ H (Negative) Urine Glucose (UA) Negative (Negative) Urine Ketones 4+ H (Negative) Urine Blood Small H (Negative) Urine Nitrite Negative (Negative) Urine Bilirubin 1+ H (Negative) Urine Urobilinogen 4.0 (<2.0) mg/dL Ur Leukocyte Esterase Negative (Negative) Urine RBC 1 (0-5) /hpf Urine WBC 2 (0-5) /hpf Ur Squamous Epith Cells 12 H (0-4) /hpf Urine Bacteria Rare H (None) /hpf Urine Mucus Many H (None) /hpf Urine HCG, Qual Not Detected (Not Detectd) Disposition Clinical Impression: Nausea vomiting and diarrhea Disposition: HOME SELF-CARE Condition: Good Instructions (If sedation given, give patient instructions): Gastroenteritis (ED) Additional Instructions: Please drink plenty of fluids by taking small sips every few minutes. Try Gatorade or Pedialyte. Eat bland foods such as bananas, rice, applesauce, toast. Take Zofran as needed for nausea. This was prescribed to Aysha. Follow-up with primary care in 1-2 days. If you start to get any worsening symptoms please return to the emergency department for further evaluation. Otherwise follow-up with your primary care provider in the next 1-2 days. Prescriptions: Ondansetron [Zofran ODT] 4 mg PO Q8HR PRN #15 tab PRN Reason: Nausea Is patient prescribed a controlled substance at d/c from ED?: No Referrals: Lance Cruz DO [Primary Care Provider] - 1-2 days Time of Disposition: 17:22
[2019-07-05 15:30] LABS: Basophils % (A) 0 %; Eosinophils # (A) 0.2 k/uL (0-0.7); Eosinophils % (A) 2 %; HCT 46.8 % (34.0-46.0); HGB 15.4 gm/dL (11.4-16.0); Lymphocytes % (A) 20 %; MCH 28.9 pg (25.0-35.0); MCHC 32.8 g/dL (31.0-37.0); MCV 88.1 fL (80.0-100.0); Mean Platelet Volume 6.6; Monocytes # (A) 0.4 k/uL (0-1.0); Monocytes % (A) 4 %; Neutrophils # (A) 7.4 k/uL (1.3-7.7); Neutrophils % (A) 73 %; Platelet Count 375 k/uL (150-450); RBC 5.31 m/uL (3.80-5.40); WBC 10.1 k/uL (3.8-10.6)
[2019-07-05 15:33] LABS: Appearance,Urine Cloudy (Clear); Bacteria,Urine Rare /hpf; Bilirubin,Urine 1+ (Negative); Blood,Urine Small (Negative); Color,Urine Yellow; Glucose,Urine (UA) Negative (Negative); Ketones,Urine 4+ (Negative); Leukocyte Esterase,Urine Negative (Negative); Mucus,Urine Many /hpf; Nitrite,Urine Negative (Negative); Protein,Urine 1+ (Negative); RBC,Urine 1 /hpf (0-5); Specific Gravity,Urine 1.037 (1.001-1.035); Squamous Epithelial Cell,Urine 12 /hpf (0-4)
[2019-07-05 15:42] LABS: ALT 26 U/L (9-52); AST 30 U/L (14-36); African American GFR (CKD) >90 (>60 ml/min/1.73 sqM); Albumin 5.1 g/dL (3.5-5.0); Alkaline Phosphatase 88 U/L (38-126); Amylase 55 U/L (30-110); Anion Gap 15 mmol/L; Blood Urea Nitrogen 14 mg/dL (7-17); Calcium 10.3 mg/dL (8.4-10.2); Carbon Dioxide 18 mmol/L (22-30); Chloride 107 mmol/L (98-107); Glucose 75 mg/dL (74-99); Non-African American GFR(CKD) >90 (>60 ml/min/1.73 sqM); Sodium 140 mmol/L (137-145); Total Bilirubin 1.2 mg/dL (0.2-1.3); Total Protein 8.3 g/dL (6.3-8.2)
[2019-07-05 16:00] LABS: Potassium 4.4 mmol/L (3.5-5.1)
[2019-07-05] MEDS ORDERED: KETOROLAC 30 MG/ML 1 ML VIAL IVP STA (16:09)
[2019-07-05] MEDS ORDERED: ONDANSETRON 4 MG/2 ML VIAL IVP STA (16:09)
--- NOTE | 2019-07-05 16:44 | CT ---
EXAMINATION TYPE: CT abdomen pelvis w con DATE OF EXAM: 07/05/2019 COMPARISON: None HISTORY: Right lower quadrant and epigastric pain. Nausea and vomiting. CT DLP: 1088.8 mGycm Automated exposure control for dose reduction was used. TECHNIQUE: Helical acquisition of images was performed from the lung bases through the pelvis. CONTRAST: Performed without Oral Contrast and with IV Contrast, patient injected with 100 mL of Isovue 300. FINDINGS: Lung bases are clear. There is no pleural effusion. Heart size is normal. There is no pericardial eff usion. Liver stomach spleen pancreas gallbladder appear normal. Bile ducts are not dilated. There is no adre nal mass. Kidneys show satisfactory contrast opacification. There is no hydronephrosis. Ureters are n ot dilated. There is no retroperitoneal adenopathy. Bladder distends smoothly. There is no inguinal hernia. There is 3 cm cyst on the left ovary. The cul-de-sac is clear fluid. The appendix appears normal. There is no mesenteric edema. There is no ascites or free air. There is no sign of a bowel obstructio n. Lumbar vertebra have normal spacing and alignment. Posterior elements are intact. Uterus appears n ormal. Bony pelvis is intact. IMPRESSION: NORMAL APPENDIX. DOMINANT LEFT OVARIAN CYST.
[2019-07-05 17:24] VITALS: BP 124/92; TEMP 98.2
== END 2019-07-05 17:28 | disposition home or self-care (01) ==
LOC: EC 14:47
DX: N83.202 Unspecified ovarian cyst, left side (principal); R11.2 Nausea with vomiting, unspecified; R19.7 Diarrhea, unspecified; R10.13 Epigastric pain; R00.0 Tachycardia, unspecified; E86.0 Dehydration; R82.4 Acetonuria; J45.909 Unspecified asthma, uncomplicated; Z79.51 Long term (current) use of inhaled steroids; Z88.1 Allergy status to other antibiotic agents; Z88.0 Allergy status to penicillin; Z88.5 Allergy status to narcotic agent; Z91.048 Other nonmedicinal substance allergy status; Z86.14 Personal history of Methicillin resistant Staphylococcus aureus infection
CPT/HCPCS: 36415; 80053; 82150; 83605; 83690; 85025; 81001; 81025; 74177; 99284; 96374; 96375; 96361 ×2; J2405; J1885; Q9967

== ENCOUNTER → 2019-07-05 | Outpatient (CLI) | payer OTHER ==
--- NOTE | 2019-07-05 14:48 | US ---
EXAMINATION TYPE: US gallbladder DATE OF EXAM: 07/05/2019 COMPARISON: Gallbladder ultrasound June 01, 2019 CLINICAL HISTORY: R10.11 ABD PAIN RUQ. Vomiting x 4 days EXAM MEASUREMENTS: Liver Length: 12.9 cm Gallbladder Wall: 0.2 cm CBD: 0.5 cm Right Kidney: 8.5 x 3.7 x 4.5 cm obscured by bowel gas Pancreas: limited views appear wnl Liver: intercostal imaging, appears wnl Gallbladder: wnl Evidence for sonographic Garibay's sign: no CBD: wnl Right Kidney: wnl Suboptimal evaluation of pancreas on initial images. Suboptimal evaluation of liver, visualized porti ons within normal limits. Gallbladder is seen without shadowing mobile gallstones. IMPRESSION: No gallstones or ultrasound evidence for acute cholecystitis. Suboptimal study without si gnificant change from recent ultrasound.
== END | disposition home or self-care (01) ==
LOC: RADUSWWP 14:12
PROVIDERS: ATTEND Family Medicine
DX: R10.11 Right upper quadrant pain (principal); R11.0 Nausea
CPT/HCPCS: 76705

== ENCOUNTER 2021-05-23 18:41 | Emergency (ER) | payer OTHER ==
[2021-05-23] MEDS ORDERED: SODIUM CHLORIDE 0.9% 1,000 ML IV STA (19:47)
--- NOTE | 2021-05-23 19:49 | ED ---
General Adult HPI - General Chief complaint: Nausea/Vomiting/Diarrhea Stated complaint: Vomiting,Headache Time Seen by Provider: 05/23/21 19:12 Source: patient Mode of arrival: ambulatory Limitations: no limitations - History of Present Illness Initial comments: 26-year-old female with a past medical history of asthma, GERD, seizure disorder, thyroid disorder presents to the emergency room for chief complete of not feeling well. Patient states for 3 weeks she has not felt well. She was exposed to [place] virus but did not get tested because her car broke down. Patient states that she is also having nausea vomiting. This has been ongoing for months now. She hasn't had much of an appetite. She has been following up with her [employer] about this and was supposed to follow up again but her truck broke down. Patient does have an appointment in a week or 2. She also has been having a headache. This has been on and off for months as well.Patient has no other complaints at this time including shortness of breath, chest pain, abdominal pain, headache, or visual changes. - Related Data Previous Rx's Medication Instructions Recorded Famotidine [Pepcid] 20 mg PO BID #30 tablet 05/23/21 Ondansetron [Zofran ODT] 4 mg PO Q8HR PRN #15 tab 05/23/21 Allergies Allergy/AdvReac Type Severity Reaction Status Date / Time nickel Allergy Mild Unknown Verified 05/23/21 19:54 amoxicillin Allergy Rash/Hives Verified 05/23/21 19:54 cephalexin monohydrate Allergy Rash/Hives Verified 05/23/21 19:54 [From Keflex] ciprofloxacin [From Cipro] Allergy Rash/Hives Verified 05/23/21 19:54 clarithromycin [From Biaxin] Allergy Rash/Hives Verified 05/23/21 19:54 oxycodone [From Percocet] Allergy Nausea & Verified 05/23/21 19:54 Vomiting Penicillins Allergy Rash/Hives Verified 05/23/21 19:54 morphine AdvReac Nausea & Verified 05/23/21 19:54 Vomiting Review of Systems ROS Statement: Those systems with pertinent positive or pertinent negative responses have been documented in the HPI. ROS Other: All systems not noted in ROS Statement are negative. Past Medical History Past Medical History: Asthma, GERD/Reflux, Osteoarthritis (OA), Seizure Disorder, Thyroid Disorder Additional Past Medical History / Comment(s): last seizure 06/13/16 does not take medication for seizures, back pain History of Any Multi-Drug Resistant Organisms: MRSA Date of last positivie culture/infection: 2011 MDRO Source:: ear Past Surgical History: Tubal Ligation Past Anesthesia/Blood Transfusion Reactions: Motion Sickness Additional Past Anesthesia/Blood Transfusion Reaction / Comment(s): pt states has never had anesthesia Past Psychological History: Anxiety, Bipolar, Depression, PTSD Smoking Status: Never smoker Past Alcohol Use History: Rare Past Drug Use History: Marijuana - Past Family History Mother Family Medical History: No Reported History General Exam Limitations: no limitations General appearance: alert, in no apparent distress Head exam: Present: atraumatic Eye exam: Present: normal appearance, PERRL, EOMI. Absent: scleral icterus, conjunctival injection ENT exam: Present: normal exam, mucous membranes moist Neck exam: Present: normal inspection, full ROM. Absent: tenderness Respiratory exam: Present: normal lung sounds bilaterally. Absent: respiratory distress, wheezes Cardiovascular Exam: Present: regular rate, normal rhythm, normal heart sounds GI/Abdominal exam: Present: soft, normal bowel sounds. Absent: distended, tenderness Neurological exam: Present: alert Course Vital Signs 05/23/21 05/23/21 18:44 21:42 Temperature 99.5 F 98.9 F Pulse Rate 119 H 88 Respiratory 20 18 Rate Blood Pressure 102/72 111/63 O2 Sat by Pulse 98 98 Oximetry Medical Decision Making - Medical Decision Making Vitals are stable. Patient is well appearing. HPI and physical exam as documented. CBC does show mild leukocytosis. CMP unremarkable. Urinalysis does not show any evidence of infection. HCG is negative. Rotavirus is negative. Given patient's headache CT brain was ordered which was unremarkable. As she has also had some mild right upper quadrant pain and nausea vomiting ultrasound was obtained of the gallbladder which was negative. Patient reevaluated in a sling better after fluids and medication. Given the upper abdominal pain we will start her on Pepcid and refer her to GI. We will send her home with Mitzi as well. Patient will return for any worsening symptoms. - Lab Data Result diagrams: 05/23/21 19:58 05/23/21 19:58 Lab Results 05/23/21 05/23/21 05/23/21 Range/Units 19:58 19:58 19:58 WBC 12.6 H (3.8-10.6) k/uL RBC 4.10 (3.80-5.40) m/uL Hgb 12.5 (11.4-16.0) gm/dL Hct 37.3 (34.0-46.0) % MCV 91.0 (80.0-100.0) fL MCH 30.4 (25.0-35.0) pg MCHC 33.4 (31.0-37.0) g/dL RDW 11.9 (11.5-15.5) % Plt Count 281 (150-450) k/uL MPV 7.7 Neutrophils % 73 % Lymphocytes % 16 % Monocytes % 4 % Eosinophils % 5 % Basophils % 0 % Neutrophils # 9.2 H (1.3-7.7) k/uL Lymphocytes # 2.1 (1.0-4.8) k/uL Monocytes # 0.5 (0-1.0) k/uL Eosinophils # 0.7 (0-0.7) k/uL Basophils # 0.0 (0-0.2) k/uL Sodium (137-145) mmol/L Potassium (3.5-5.1) mmol/L Chloride (98-107) mmol/L Carbon Dioxide (22-30) mmol/L Anion Gap mmol/L BUN (7-17) mg/dL Creatinine (0.52-1.04) mg/dL Est GFR (CKD-EPI)AfAm (>60 ml/min/1.73 sqM) Est GFR (CKD-EPI)NonAf (>60 ml/min/1.73 sqM) Glucose (74-99) mg/dL Calcium (8.4-10.2) mg/dL Total Bilirubin (0.2-1.3) mg/dL AST (14-36) U/L ALT (4-34) U/L Alkaline Phosphatase (38-126) U/L Total Protein (6.3-8.2) g/dL Albumin (3.5-5.0) g/dL Lipase (23-300) U/L Urine Color Yellow Urine Appearance Cloudy H (Clear) Urine pH 6.0 (5.0-8.0) Ur Specific [place] 1.017 (1.001-1.035) Urine Protein Trace H (Negative) Urine Glucose (UA) Negative (Negative) Urine Ketones Trace H (Negative) Urine Blood Negative (Negative) Urine Nitrite Negative (Negative) Urine Bilirubin Negative (Negative) Urine Urobilinogen 2.0 (<2.0) mg/dL Ur Leukocyte Esterase Trace H (Negative) Urine RBC 1 (0-5) /hpf Urine WBC 2 (0-5) /hpf Ur Squamous Epith Cells 5 H (0-4) /hpf Hyaline Casts 13 H (0-2) /lpf Urine Mucus Moderate H (None) /hpf Urine HCG, Qual Not Detected (Not Detectd) Coronavirus (PCR) (Not Detectd) 05/23/21 05/23/21 Range/Units 19:58 19:58 WBC (3.8-10.6) k/uL RBC (3.80-5.40) m/uL Hgb (11.4-16.0) gm/dL Hct (34.0-46.0) % MCV (80.0-100.0) fL MCH (25.0-35.0) pg MCHC (31.0-37.0) g/dL RDW (11.5-15.5) % Plt Count (150-450) k/uL MPV Neutrophils % % Lymphocytes % % Monocytes % % Eosinophils % % Basophils % % Neutrophils # (1.3-7.7) k/uL Lymphocytes # (1.0-4.8) k/uL Monocytes # (0-1.0) k/uL Eosinophils # (0-0.7) k/uL Basophils # (0-0.2) k/uL Sodium 135 L (137-145) mmol/L Potassium 4.1 (3.5-5.1) mmol/L Chloride 107 (98-107) mmol/L Carbon Dioxide 21 L (22-30) mmol/L Anion Gap 7 mmol/L BUN 7 (7-17) mg/dL Creatinine 0.62 (0.52-1.04) mg/dL Est GFR (CKD-EPI)AfAm >90 (>60 ml/min/1.73 sqM) Est GFR (CKD-EPI)NonAf >90 (>60 ml/min/1.73 sqM) Glucose 87 (74-99) mg/dL Calcium 9.0 (8.4-10.2) mg/dL Total Bilirubin 0.5 (0.2-1.3) mg/dL AST 28 (14-36) U/L ALT 12 (4-34) U/L Alkaline Phosphatase 58 (38-126) U/L Total Protein 6.5 (6.3-8.2) g/dL Albumin 4.0 (3.5-5.0) g/dL Lipase 63 (23-300) U/L Urine Color Urine Appearance (Clear) Urine pH (5.0-8.0) Ur Specific [place] (1.001-1.035) Urine Protein (Negative) Urine Glucose (UA) (Negative) Urine Ketones (Negative) Urine Blood (Negative) Urine Nitrite (Negative) Urine Bilirubin (Negative) Urine Urobilinogen (<2.0) mg/dL Ur Leukocyte Esterase (Negative) Urine RBC (0-5) /hpf Urine WBC (0-5) /hpf Ur Squamous Epith Cells (0-4) /hpf Hyaline Casts (0-2) /lpf Urine Mucus (None) /hpf Urine HCG, Qual (Not Detectd) Coronavirus (PCR) Not Detected (Not Detectd) Disposition Clinical Impression: Nausea & vomiting Disposition: HOME SELF-CARE Condition: Good Additional Instructions: Please take Zofran and Pepcid as directed. Follow up with primary care. Follow up with GI as well. If you develop worsening symptoms return to the emergency room. Prescriptions: Famotidine [Pepcid] 20 mg PO BID #30 tablet Ondansetron [Zofran ODT] 4 mg PO Q8HR PRN #15 tab PRN Reason: Nausea Is patient prescribed a controlled substance at d/c from ED?: No Referrals: Pedro Sigala MD [REFERRING] - 1-2 days Dominga Szymanski MD [STAFF PHYSICIAN] - 1-2 days Time of Disposition: 22:36
[2021-05-23 20:17] LABS: Basophils % (A) 0 %; Eosinophils # (A) 0.7 k/uL (0-0.7); Eosinophils % (A) 5 %; HCT 37.3 % (34.0-46.0); HGB 12.5 gm/dL (11.4-16.0); Lymphocytes # (A) 2.1 k/uL (1.0-4.8); Lymphocytes % (A) 16 %; MCH 30.4 pg (25.0-35.0); MCHC 33.4 g/dL (31.0-37.0); Mean Platelet Volume 7.7; Monocytes # (A) 0.5 k/uL (0-1.0); Monocytes % (A) 4 %; Neutrophils # (A) 9.2 k/uL (1.3-7.7); Neutrophils % (A) 73 %; Platelet Count 281 k/uL (150-450); RDW 11.9 % (11.5-15.5); WBC 12.6 k/uL (3.8-10.6)
[2021-05-23 20:22] LABS: ALT 12 U/L (4-34); AST 28 U/L (14-36); African American GFR (CKD) >90 (>60 ml/min/1.73 sqM); Alkaline Phosphatase 58 U/L (38-126); Anion Gap 7 mmol/L; Blood Urea Nitrogen 7 mg/dL (7-17); Carbon Dioxide 21 mmol/L (22-30); Chloride 107 mmol/L (98-107); Glucose 87 mg/dL (74-99); Lipase 63 U/L (23-300); Non-African American GFR(CKD) >90 (>60 ml/min/1.73 sqM); Sodium 135 mmol/L (137-145); Total Bilirubin 0.5 mg/dL (0.2-1.3); Total Protein 6.5 g/dL (6.3-8.2)
[2021-05-23 20:23] LABS: Potassium 4.1 mmol/L (3.5-5.1)
[2021-05-23 20:38] LABS: Appearance,Urine Cloudy (Clear); Bilirubin,Urine Negative (Negative); Blood,Urine Negative (Negative); Color,Urine Yellow; Glucose,Urine (UA) Negative (Negative); Hyaline Casts,Urine 13 /lpf (0-2); Ketones,Urine Trace (Negative); Leukocyte Esterase,Urine Trace (Negative); Mucus,Urine Moderate /hpf; Nitrite,Urine Negative (Negative); Protein,Urine Trace (Negative); RBC,Urine 1 /hpf (0-5); Specific Gravity,Urine 1.017 (1.001-1.035); Squamous Epithelial Cell,Urine 5 /hpf (0-4); WBC,Urine 2 /hpf (0-5)
--- NOTE | 2021-05-23 21:18 | CT ---
EXAMINATION TYPE: CT brain wo con DATE OF EXAM: 05/23/2021 COMPARISON: 07/14/2011 HISTORY: headaches CT DLP: 1082.4 mGycm Automated exposure control for dose reduction was used. The ventricles and sulci appear normal. There is no mass effect nor midline shift. There is no sign o f intracranial hemorrhage. Calvarium is intact. There is no evidence of cerebral edema. Skull base is intact. IMPRESSION: Negative unenhanced head CT scan.
[2021-05-23] MEDS ORDERED: ONDANSETRON 4 MG/2 ML VIAL IVP STA (21:44)
[2021-05-23] MEDS ORDERED: KETOROLAC 15 MG/ML 1 ML VIAL IVP STA (21:47)
--- NOTE | 2021-05-23 22:29 | US ---
EXAMINATION TYPE: US gallbladder DATE OF EXAM: 05/23/2021 COMPARISON: NONE CLINICAL HISTORY: pain. abdominal pain, nausea, vomiting EXAM MEASUREMENTS: Liver Length: 14.2 cm Gallbladder Wall: 0.2 cm CBD: 0.3 cm Right Kidney: 10.1 x 3.7 x 4.5 cm *Limitations due to large amount of overlying bowel content Pancreas: Obscured by bowel gas Liver: best seen intercostally, visualized portions appear wnl Gallbladder: no evidence of stones Evidence for sonographic Garibay's sign: no CBD: wnl Right Kidney: No evidence of hydronephrosis or mass IMPRESSION: negative exam. No gallstones or dilated ducts.
[2021-05-23 23:03] VITALS: BP 98/64; PULSE 76; RESP 16; TEMP 98.1
== END 2021-05-23 23:50 | disposition home or self-care (01) ==
LOC: EC 18:41
DX: R11.2 Nausea with vomiting, unspecified (principal); J45.909 Unspecified asthma, uncomplicated; K21.9 Gastro-esophageal reflux disease without esophagitis; Z20.822 Contact with and (suspected) exposure to COVID-19; F12.90 Cannabis use, unspecified, uncomplicated; Z88.0 Allergy status to penicillin; Z88.6 Allergy status to analgesic agent; Z88.1 Allergy status to other antibiotic agents
CPT/HCPCS: 36415; 80053; 83690; 85025; 81001; 81025; 87635; 76705; 70450; 96374; 96375; 96361; 99284; J2405; J1885

== ENCOUNTER 2021-07-29 10:20 | Day surgery (SDC) | payer OTHER ==
[2021-07-29 11:08] VITALS: RESP 16; TEMP 97.9
[2021-07-29] MEDS ORDERED: LIDOCAINE 1% (10MG/ML) FOR IV START INTRADERMA PRN (11:11)
[2021-07-29] MEDS ORDERED: LACTATED RINGERS 1,000 ML IV SCH (11:11)
[2021-07-29] MEDS ORDERED: PROPOFOL 10 MG/ML 20 ML VIAL IV ONE (12:18)
[2021-07-29] MEDS ORDERED: LIDOCAINE 1% INJ 10MG/ML (20 ML MDV) ONE (12:18)
[2021-07-29] MEDS ORDERED: MIDAZOLAM 2 MG/2 ML VIAL ONE (12:18)
--- NOTE | 2021-07-29 12:39 | P.PCN ---
Date of Procedure: 07/29/21 Procedure(s) Performed: Brief history: Patient is a pleasant 26-year-old pleasant white female scheduled for an elective upper endoscopy as well as colonoscopy as a part of evaluation of diffuse abdominal pain associated with nausea vomiting, alternating diarrhea and constipation for the last 1 year duration. Recently was started on Pepcid as well as Zofran with some help. Procedure performed: Esophagogastroduodenoscopy with biopsy Colonoscopy with biopsy Preoperative diagnosis: Diffuse abdominal pain associated with nausea vomiting of one year duration Alternating diarrhea and constipation Anesthesia: MAC Procedure: After informed consent was obtained from the patient was brought into the end oscopy unit and IV sedation was administered by anesthesia under continuous monitoring. Initially upper endoscopy was done. The Olympus GF 160 video endoscope was inserted inserted into the mouth and esophagus intubated without any difficulty and was gradually advanced into the stomach and duodenum and carefully examined. The bulb and second part of the duodenum appeared normal. Abscesses were done from the duodenum to rule out celiac disease. The scope was then withdrawn into the stomach adequately insufflated with air and upon careful examination the antrum had mild gastritis and biopsies were done from this area. The body, cardia and fundus appeared normal. The scope was then withdrawn into the esophagus. The GE junction was located at 40 cm to the incisors. It appeared regular with no erythema erosions or ulcerations. There is small hiatal Hernia Noted. Biopsies Were Done from the Distal Esophagus. Rest of the esophagus appeared normal. Patient tolerated the procedure well. At this time the patient continued to remain sedation. Initial digital rectal examination was normal. Olympus CF 160 video colonoscope was then inserted into the rectum and gradually advanced to the cecum without any difficulty. Careful examination was performed as the scope was gradually being withdrawn. The prep was excellent. Terminal ileum was intubated and 20 cm visualized and appeared normal. Biopsies were done from the terminal ileum. The cecum, ascending colon, transverse colon, descending colon, sigmoid colon and rectum appeared normal. Random biopsies were done from ascending and descending colon to rule out microscopic/collagenous colitis Retroflexion was performed in the rectum and no lesions were noted. Patient tolerated the procedure well. Impression: 1. Upper endoscopy revealed mild antral gastritis but no evidence of esophagitis or peptic ulcer disease. 2. Colonoscopy was within normal limits with no evidence of colitis or colorectal neoplasia Recommendations: Findings of this examination were discussed with the patient as well as her family. She was advised to follow with the biopsy results. She'll be seen in office in 2-3 weeks.
[2021-07-29 13:11] VITALS: BP 109/67; PULSE 99
[2021-07-29] MEDS ORDERED: ONDANSETRON ODT 4 MG TAB PO ONE ×2 (13:19→13:20)
== END 2021-07-29 13:43 | disposition home or self-care (01) ==
LOC: ORWHC2ENDO 10:20
PROVIDERS: ATTEND Internal Medicine Gastroenterology
DX: K29.70 Gastritis, unspecified, without bleeding (principal)
CPT/HCPCS: 45380; 43239; 81025; J2250; J2001; J2704

== ENCOUNTER → 2024-11-17 | Outpatient (CLI) | payer OTHER ==
[2024-11-17 13:34] LABS: Appearance,Urine Cloudy (Clear); Bacteria,Urine Rare /hpf; Bilirubin,Urine Negative (Negative); Blood,Urine Negative (Negative); Color,Urine Light Yellow; Glucose,Urine (UA) Negative (Negative); Ketones,Urine Negative (Negative); Leukocyte Esterase,Urine Small (Negative); Mucus,Urine Rare /hpf; Nitrite,Urine Negative (Negative); Protein,Urine Negative (Negative); RBC,Urine 2 /hpf (0-5); Squamous Epithelial Cell,Urine 11 /hpf (0-4); Urobilinogen,Urine <2.0 mg/dL (<2.0); WBC,Urine 2 /hpf (0-5)
[2024-11-17 16:25] LABS: Testosterone 18.1 ng/dL (9.01-47.94)
[2024-11-17 16:35] LABS: Prolactin 26.9 ng/mL (2.800-29.200)
== END | disposition home or self-care (01) ==
LOC: LABWHC1 11:58
PROVIDERS: ATTEND Family Medicine
DX: N39.0 Urinary tract infection, site not specified (principal); Z79.899 Other long term (current) drug therapy
CPT/HCPCS: 36415; 81001; 82626; 84146; 84403

== ENCOUNTER → 2024-12-11 | Outpatient (CLI) | payer OTHER ==
--- NOTE | 2024-12-11 12:46 | XR ---
EXAMINATION TYPE: XR thoracic spine complete DATE OF EXAM: 12/11/2024 10:39 AM COMPARISON: None CLINICAL INDICATION: Female, 29 years old with history of M54.6; PHH, pain TECHNIQUE: 3 views FINDINGS: Very gentle dextroconvex curvature may be positional. 12 rib bearing thoracic vertebral bodies. All p edicles are visualized. Vertebral body heights are preserved and alignment is maintained. IMPRESSION: Very gentle dextroconvex curvature, probably positional. Clinically correlate. No vertebral compressi on collapse or malalignment. [facility], Workstation: [email or web address], 12/11/2024 12:44 PM
--- NOTE | 2024-12-11 12:47 | XR ---
EXAMINATION TYPE: XR lumbar spine 3V DATE OF EXAM: 12/11/2024 10:39 AM COMPARISON: None CLINICAL INDICATION: Female, 29 years old with history of M51.36; PHH, pain FINDINGS: 5 lumbar type vertebral bodies. There may be mild early facet burning in the lower lumbar spine. Vert ebral body heights and disc interspaces are maintained. Alignment is preserved. IMPRESSION: No vertebral compression collapse or malalignment. Very early degenerative facet spurring in the lowe r lumbar spine. [facility], , 12/11/2024 12:45 PM
== END | disposition home or self-care (01) ==
LOC: RADXRMAIN 10:13
PROVIDERS: ATTEND Family Medicine
DX: M47.816 Spondylosis without myelopathy or radiculopathy, lumbar region (principal); M54.6 Pain in thoracic spine
CPT/HCPCS: 72072; 72100

== ENCOUNTER → 2025-02-27 | Outpatient (CLI) | payer OTHER ==
--- NOTE | 2025-03-06 21:37 | MR ---
MR lumbar spine wo con: 02/27/2025 7:03 PM INDICATION: Patient age:Female; 29 years old; Reason for study: M54.6 PAIN IN THORACIC SPINE; PHH. COMPARISON: Thoracic and lumbar spine radiographs 12/11/2024. TECHNIQUE: Multi planar, multi sequence imaging was performed utilizing: T1-weighted, T2-weighted, a nd turbo inversion recovery imaging of the lumbar spine. FINDINGS: The conus medullaris, which terminates at L1, and the distal spinal cord appear unremarkable in regar ds to their signal intensity and morphology. The lumbar vertebral bodies have preserved heights and a lignment. Bone marrow signal is within normal limits. Intervertebral disc signal is maintained. . T12-L1: No significant disc pathology is identified. No significant spinal canal or neural foraminal stenoses. L1-L2: No significant disc pathology is identified. No significant spinal canal or neural foraminal s tenoses. L2-L3: No significant disc pathology is identified. No significant spinal canal or neural foraminal s tenoses. L3-L4: No significant disc pathology is identified. No significant spinal canal or neural foraminal s tenoses. Moderate right left facet arthropathy. L4-L5: No significant disc pathology is identified. No significant spinal canal or neural foraminal s tenoses. Moderate right greater than left facet arthropathy. L5-S1: No significant disc pathology is identified. No significant spinal canal or neural foraminal s tenoses. Other findings: None. IMPRESSION: No definitive evidence of disc herniation or significant spinal canal stenosis. [facility], Workstation: [email or web address], 03/06/2025 9:34 PM
== END | disposition home or self-care (01) ==
LOC: RADMRIMAIN 18:11
PROVIDERS: ATTEND Family Medicine
DX: M47.816 Spondylosis without myelopathy or radiculopathy, lumbar region (principal)
CPT/HCPCS: 72148